=== PATIENT | female | born 1950 | race Caucasian/White ===

== ENCOUNTER 2021-10-12 08:15 | Outpatient (RCR) | payer MEDICARE, BC, SELFPAY | END 2022-09-28 11:08 | disposition home or self-care (01) | PROVIDERS: PCP Family Medicine; Visit Provider Surgery | DX: M25.561 Pain in right knee (principal); M17.11 Unilateral primary osteoarthritis, right knee; R26.9 Unspecified abnormalities of gait and mobility; Z51.89 Encounter for other specified aftercare | CPT/HCPCS: 97110; 97116; 97140; 97162; 97535; X5282 ==

== ENCOUNTER 2021-10-19 10:08 | Outpatient (CLI) | payer MEDICARE, BC, SELFPAY ==
--- NOTE | 2021-10-19 10:15 | CRLHL7_ITS ---
For Patients: As a result of the Century Cures Act, medical imaging exams and procedure reports are released immediately into your electronic medical record. You may view this report before your referring provider. If you have questions, please contact your health care provider. BILATERAL SCREENING MAMMOGRAM WITH COMPUTER-AIDED DETECTION AND TOMOSYNTHESIS TECHNIQUE: CC and MLO views were obtained. These mammographic images have been obtained using full-field digital technique. These mammographic images were interpreted with the benefit of computer-aided detection. Breast Tomosynthesis was used in this interpretation. COMPARISON FILM: 09/30/20, 09/30/19, 09/03/18. FINDINGS: There are scattered areas of fibroglandular density IMPRESSION: There is no radiographic evidence for malignancy. ASSESSMENT: BI-RADS Category 2: Benign RECOMMENDATION: Routine screening mammogram in 1 year. A lay language report of this examination will be provided to the patient. Jorje Manzano M.D. Diagnostic Radiologist [email or web address] Transcribed: 5:00 pm DW/Dictated by: Jorje Manzano MD @ 10/19/2021 12:02:00 PM (Electronically Signed)
== END 2021-10-19 10:09 | disposition home or self-care (01) ==
LOC: MAMMO 10:09
PROVIDERS: PCP Family Medicine; Visit Provider Family Medicine
DX: Z12.31 Encounter for screening mammogram for malignant neoplasm of breast (principal); R92.2 Inconclusive mammogram
CPT/HCPCS: 77063; 77067

== ENCOUNTER 2021-11-24 09:45 | Outpatient (RCR) | payer MEDICARE, BC, SELFPAY | END 2022-03-15 10:42 | disposition home or self-care (01) | PROVIDERS: PCP Family Medicine; Visit Provider Orthopaedic Surgery | DX: M17.11 Unilateral primary osteoarthritis, right knee (principal); Z51.89 Encounter for other specified aftercare | CPT/HCPCS: 97110; 97116; 97162 ==

== ENCOUNTER 2021-12-17 08:43 | Outpatient (CLI) | payer MEDICARE, BC, SELFPAY ==
[2021-12-17 13:28] LABS: SARS PCR* Negative SARS-CoV-2 (Negative)
== END 2021-12-17 08:44 | disposition home or self-care (01) ==
LOC: LONREF 08:43
PROVIDERS: PCP Family Medicine; Visit Provider Family Medicine
DX: Z20.822 Contact with and (suspected) exposure to COVID-19 (principal); Z01.818 Encounter for other preprocedural examination
CPT/HCPCS: 87635

== ENCOUNTER 2021-12-20 08:56 | Day surgery (SDC) | payer MEDICARE, BC, SELFPAY ==
--- NOTE | 2021-12-14 13:23 | PC.SOCIAL ---
Pre-Op Discharge Plan. Spoke with pt. after her pre-op teaching with the nurse. pt. is scheduled for a RTK next Monday. Pt. had questions about jail coverage but is hoping to discharge home with adult children checking on her and support. Answered pt.'s questions about SNF coverage.
[2021-12-20] VITALS (25 sets, daily range): BP systolic 92–147; BP diastolic 58–91; PULSE 55–103; RESP 12–20; TEMP 35.7–36.7; O2SAT 89–98; BMI 35.9
[2021-12-20] MEDS: SODIUM CHLORIDE 0.9 % (FLUSH) 10 ML SYRINGE IVF (10:10)
[2021-12-20] MEDS: LACTATED RINGERS 1000 ML 1,000 ML 100 ML IV ×2 (10:26→12:53)
[2021-12-20] MEDS: ACETAMINOPHEN 500 MG TABLET 1000 MG PO ×3 (10:27→21:12)
[2021-12-20] MEDS: CELECOXIB 200 MG CAPSULE PO ×2 (10:27→21:23)
[2021-12-20] MEDS: OXYCODONE (CR) 10 MG TAB.ER.12H PO (10:27)
[2021-12-20] MEDS: MIDAZOLAM HCL 1 MG/ML inj IVP (10:59)
[2021-12-20] MEDS: fentaNYL 100 MCG/2 ML inj IVP (10:59)
--- NOTE | 2021-12-20 11:04 | P.NB_ITS ---
Nerve Block Nerve Block Time Seen by Provider: 11:04 Date Seen: 12/20/21 Type of block requested by surgeon for post-operative analgesia: adductor canal Side: right Time out performed: Yes Verification of patient name: Yes Verification of date of : Yes Site marking: site marked Name of person performing procedure: Jona Continuous monitoring Was continuous monitoring of O2 sat, B/P, equipment monitor phototypesetting, recorded every 15 minutes?: Yes Procedure Checklist: sterile prep, needles and gloves Ultrasound guided. Images saved: Yes Medications given in 5ml increments after negative aspiration: Ropivicaine %: 0.5 mL: 20 Needle gauge: 20 Decadron (mg): 10 Precedex (mcg): 25 Patient tolerated procedure well: Yes Additional comments: Needle noted adjacent to nerve Block Charges Block Charge (with Pro Fee): Femoral Nerve Use of Ultrasound Machine for Block: Yes- US Guidance/pain block
--- NOTE | 2021-12-20 11:04 | P.NB_ITS ---
Nerve Block Nerve Block Time Seen by Provider: 11:05 Date Seen: 12/20/21 Type of block requested by surgeon for post-operative analgesia: geniculars Side: right Time out performed: Yes Verification of patient name: Yes Verification of date of : Yes Site marking: site marked Name of person performing procedure: Jona Continuous monitoring Was continuous monitoring of O2 sat, B/P, compliance monitor, recorded every 15 minutes?: Yes Procedure Checklist: sterile prep, needles and gloves Medications given in 5ml increments after negative aspiration: Ropivicaine %: 0.5 mL: 9 Needle gauge: 25 Patient tolerated procedure well: Yes Block Charges Block Charge (with Pro Fee): Genicular Nerve Block Use of Ultrasound Machine for Block: No
--- NOTE | 2021-12-20 11:06 | SUR.PREOP ---
TIME?OUT:?1058 PT/RN/MDA?VERIFICATION?OF?SURGICAL?SITE,?PROCEDURE,?AND?CONSENT OBTAINED?PRIOR?TO?INVASIVE?PROCEDURE. All in agreement.
[2021-12-20] MEDS: TRANEXAMIC ACID 100 MG/ML INJ 1000 MG IV (11:30)
[2021-12-20] MEDS: CEFAZOLIN 2 GM in 0.9 % SODIUM CHLORIDE Mini-bag 100 ML IVPB ×2 (12:17→19:46)
--- NOTE | 2021-12-20 13:01 | CRLHL7_ITS ---
For Patients: As a result of the Cures Act, medical imaging exams and procedure reports are released immediately into your electronic medical record. You may view this report before your referring provider. If you have questions, please contact your health care provider. INDICATION: Post operative total knee arthroplasty TECHNIQUE: Knee radiograph 2 views right COMPARISON: None FINDINGS: Bone: No acute fractures or aggressive bone lesions are identified. Joint: The patient is status post a total knee arthroplasty with patellar resurfacing. No significant knee effusion is seen. Soft tissue: Anterior skin, subcutaneous gas and joint gas are present from recent surgery. No radiopaque foreign bodies are seen. IMPRESSION: 1. There is an unremarkable postoperative appearance of the knee arthroplasty. Dictated by: Kermit Brar MD @ 12/20/2021 16:17:06 (Electronically Signed)
--- NOTE | 2021-12-20 13:49 | W.ANESCHARGE ---
Anesthesia Charges Start Date/Time Anesthesia Start Date: 12/20/21 Anesthesia Start Time: 11:17 Stop Date/Time Anesthesia Stop Date: 12/20/21 Anesthesia Stop Time: 13:32 Summary Emergency: No Extremes of Age: Over 70-CPT 85621
--- NOTE | 2021-12-20 14:15 | W.ANESCHARGE ---
Anesthesia Charges Start Date/Time Anesthesia Start Date: 12/20/21 Anesthesia Start Time: 11:17 Stop Date/Time Anesthesia Stop Date: 12/20/21 Anesthesia Stop Time: 13:32 Summary Emergency: No Extremes of Age: Over 70-CPT 99215
--- NOTE | 2021-12-20 14:54 | PM.ORPRC ---
Procedure Note Date of procedure: 12/20/21 Procedure: PREOPERATIVE DIAGNOSIS: 1. Right knee osteoarthritis, primary, severe POSTOPERATIVE DIAGNOSIS: 1. Right knee osteoarthritis, primary, severe PROCEDURE: 1. Right total knee arthroplasty SURGEON: Andrea Hinson MD. LEASE OUT WORKER: Karl AJ - Of note, a skilled assistant manager quality management was critical for this case to aid in patient positioning, tissue retraction, limb manipulation/positioning, and closure. ANESTHESIA: Spinal anesthetic IMPLANTS: DePuy J&J all cemented TKA - Attune PS femur size 6 narrow, size 5 tibia, 5 poly spacer, 35 mm patella TOURNIQUET: 90 min at 300 torr EBL: 50 ml COMPLICATIONS: None evident INDICATIONS: The patient is a pleasant 71-year-old female who has experienced severe right knee pain and difficulty bearing weight. Workup included x-rays which revealed severe osteoarthrosis in the knee. Given the deformity, the dysfunction, and the pain, as well as the failure of nonoperative management, recommendation was made for surgery. FINDINGS: Full-thickness chondral loss medial compartment. Significant chondromalacia remaining compartments. Degenerative medial meniscus pathology/tearing. Large effusion and large popliteal cyst encounter. DESCRIPTION OF PROCEDURE: Following a thorough discussion of risks, benefits, and alternatives consent was obtained and the right knee was marked. The patient was brought to the operating room and placed supine on the operating table. Induction of anesthesia was undertaken. 2 g IV Ancef and 1 g tranexamic acid was administered within 1 hr of incision preoperatively. Proper time-out was performed identifying proper patient, site, procedure. The operative extremity was prepped and draped in the appropriate sterile fashion using ChloraPrep after the patient was positioned supine with all bony prominences well padded. A longitudinal, anterior, midline skin incision was made starting approximately 3cm proximal to the superior pole of the patella and advanced distal to the tibial tubercle. A median parapatellar arthrotomy was created. A medial subperiosteal sleeve was created with knife, willard elevator and curved osteotome. The retropatellar fatpad was resected and the synovium in the suprapatellar pouch excised to visualize the anterior femoral cortex. Femoral preparation was performed via an intramedullary guide. Step drill allowed access into the femoral canal. The distal cutting guide was placed with this 6 ? of valgus and 11 mm cut on the distal femur. Femur was sized using a posterior referencing guide in 5 ? of external rotation. This found have a best fit with the sizing noted above. The 4 in 1 cutting block was then placed, and the distal femur shaped accordingly. The box cut was then created and the trial implant inserted to confirm appropriate fit. We turned our attention to the proximal tibia. Extramedullary guide was utilized for cutting with the goal of being 90 degree cut from the mechanical axis of the tibia in the varus/valgus plane utilizing tibial crest as the primary alignment. Initially a 3 mm resection was performed from the medial tibial plateau. Ultimately, balancing was achieved in both flexion and extension in both varus and valgus. The knee was able to achieve full extension as well comfortably. The patella was initially measured and found have a thickness of 21 mm. It was resected back to approximately 14 mm. It was sized to be a best fit with as noted above. This was drilled, trial placed. All trials were placed and found to have an excellent stability and balance. At this stage, trial implants were removed, the knee was thoroughly irrigated with normal saline, and the cement was mixed. After irrigation, the knee was thoroughly dried, and cement placed, with the real tibial and femoral implants placed along with the patella. Trial poly spacer was placed and confirmed to have excellent range of motion and full extension, and the real poly spacer opened and inserted. All extra cement was removed, and a 3 min Betadine soak performed. Finally, a final irrigation round with normal saline was performed. Closure performed with 0 Vicryl and #0 Stratafix for the quad tendon/retinaculum. 2-0 Vicryl for the subcutaneous and 4-0 Stratafix for subcuticular closure. Dressings were applied and the patient was awoken from anesthesia after the tourniquet deflated and transferred the PACU in stable condition. A skilled assistant manager quality management was critical for this case to aid in patient positioning, tissue retraction, bone exposure, limb manipulation/positioning, patient safety, and closure. PLAN: 1. Weight bear as tolerated operative extremity. 2. 23 hr perioperative antibiotics. 3. Ice. 4. PT/OT consults for ambulation assistance/mobility education. 5. Social work consult for discharge planning. 6. DVT prophylaxis with at SCDs, Gregorio Hose, and aspirin twice daily.
--- NOTE | 2021-12-20 20:59 | PC.NURSE ---
shift [id number] pt this shift returned from PACU around 1405. Pt drowsy, color WNL, stable on room air, and able to wiggle toes. Pt needed 2L nasal cannula soon after arrival for sats under 90%. Tolerated 1L NC after about 2 hours. pt c/o tingling bugs on feet massage was effective in reducing pain. Pt c/o of cramping throughout R leg, massage also seem to help. CMS intact, bandage CDI. tolerated ice chips, advanced to jello, and then soup. Dilaudid given for pain 09/19, see eMAR. Up to the toilet x2 using gait belt and walker. two person assist for first transfer, 1 person assist after. Family at bedside.
[2021-12-20] MEDS: ASPIRIN 81 MG TABLET EC PO (21:13)
[2021-12-20] MEDS: GABAPENTIN 300 MG CAPSULE PO (21:24)
[2021-12-20] MEDS: SENNOSIDES 1 TAB TABLET 2 TAB PO (21:26)
[2021-12-20] MEDS: ROSUVASTATIN CALCIUM 10 MG TABLET 20 MG PO (21:29)
--- NOTE | 2021-12-20 22:17 | PM.IMCN1 ---
Date of Consult Patient: [facility] Patient Consult date: 12/20/21 Requesting Physician: Orthopedics Primary Care Provider: Bryant Jc MD Consult Narrative Reason for consult: Postoperative management of medical problems Narrative: Leelee Snow is a 71 year old woman with end-stage right knee arthrosis who presents for elective right total knee arthroplasty. This is undertaken successfully without any complications. Review of Systems Status of ROS: Reports: 10 or more systems reviewed and unremarkable except as noted in History and below Narrative: Denies angina, anginal equivalent, syncope, near syncope, nausea, vomiting, palpitations, diaphoresis, dyspnea at rest, paroxysmal nocturnal dyspnea, orthopnea, or claudication. States bowel and bladder function are satisfactory. Denies focal motor neurologic deficits. No recent trauma or injury. No blood loss of any sort. Lives alone. Has family and friends who live nearby and are very supportive. Designates her 2 daughters as her salgado of assistant city attorney for health should that be required. Adamantly declines any resuscitation of any kind in the event of cardiopulmonary demise. Does use her CPAP routinely. GI: Denies: diarrhea PFSH PFSH Medical History ASCVD (arteriosclerotic cardiovascular disease) Asthma COPD (chronic obstructive pulmonary disease) Cyst of Bartholin's gland Diverticulosis DJD (degenerative joint disease) GERD (gastroesophageal reflux disease) HTN (hypertension) Hyperlipidemia Invasive lobular carcinoma of right breast in female (~11/2020) Obesity (BMI 30-39.9) Obstructive sleep apnea Osteoarthritis of right knee Osteopenia Pulmonary hypertension Tobacco use Surgical History History of parotid gland excision History of removal of ovarian cyst S/P ger S/P lumpectomy of breast (~11/2020) S/P radiation therapy Status post arthroscopy of left knee Family History Father Bladder cancer Mother CHF (congestive heart failure) Social History Smoking Status: Former smoker What tobacco products do you use: cigarettes Smoking quit date/years: <= 15 years ago Do you use any of these nicotine containing products: None Second hand tobacco smoke exposure: No How often do you have a drink containing alcohol: monthly or less Alcohol type: wine How many standard drinks containing alcohol do you have on a typical day: 1 or 2 How often do you have six or more drinks on one occasion: Never AUDIT-C Alcohol total score: 1 Non-prescribed substance use: denies use and marijuana (any form) Non-prescribed substance use details: CBD cream but has not used for a couple weeks Caffeine: Yes (1-2 cups/day) Are you using contraception or practicing any form of control: No Meds Home Medications and Allergies Home Medications Medication Instructions Recorded Confirmed Type aspirin 81 mg tablet,delayed 81 mg PO QDAY 11/12/21 12/20/21 History release celecoxib 200 mg capsule 200 mg PO QDAY 11/12/21 12/20/21 History fluticasone propionate 220 1 puff inhalation BID 11/12/21 12/20/21 History mcg/actuation HFA aerosol inhaler (Flovent HFA) furosemide 20 mg tablet 20 mg PO QAM 11/12/21 12/20/21 History gabapentin 300 mg capsule 300 mg PO TID 11/12/21 12/20/21 History losartan 100 mg tablet 100 mg PO QDAY 11/12/21 12/20/21 History magnesium oxide 400 mg (241.3 mg 400 mg PO QDAY 11/12/21 12/20/21 History magnesium) tablet omeprazole 40 mg capsule,delayed 40 mg PO QDAY 11/12/21 12/20/21 History release rosuvastatin 20 mg tablet 20 mg PO QDAY 11/12/21 12/20/21 History Allergies Allergy/AdvReac Type Severity Reaction Status Date / Time contact metal agent Allergy Mild Verified 12/17/21 08:40 codeine Allergy Rash Verified 12/17/21 08:40 Penicillins Allergy Rash Verified 12/17/21 08:40 Exam Narrative: Exam Narrative: Appears comfortable and in no acute distress. Alert, oriented to self, place, time, situation. Friendly, articulate, cooperative. Mood and affect are congruent. Vision and hearing are grossly normal. Tight oral aperture. Dentition in fair repair. Full neck. Midline trachea. Normal thyroid. Negative lymphadenopathy. Lungs are clear to auscultation without wheezing, rhonchi, or rales. Chest wall excursions are full. No CVA tenderness. Heart tones with regular rhythm, normal S1-S2, without murmur, gallop, or rub. Abdomen is obese with active bowel sounds, soft, nontender. Extremities without edema. No focal motor neurologic abnormalities. Skin is warm, dry, intact. Const: Vital Signs, click to edit/add: Vital Signs - 24 hr 12/20/21 09:58 12/20/21 11:07 12/20/21 11:11 Temperature 98.0 F Pulse Rate 68 60 58 L Pulse Rate [Right Pulse Oximeter] Respiratory Rate 16 16 14 Blood Pressure 147/71 H 138/64 94/58 L Blood Pressure [Le ft Arm] Pulse Oximetry 94 94 92 Oxygen Delivery Me thod Room Air Nasal Cannula Nasal Cannula Oxygen Flow Rate 2 2 12/20/21 11:08 12/20/21 13:30 12/20/21 13:35 Temperature 97.2 F L Pulse Rate 57 L 58 L 59 L Pulse Rate [Right Pulse Oximeter] Respiratory Rate 14 16 16 Blood Pressure 123/72 92/61 96/66 Blood Pressure [Le ft Arm] Pulse Oximetry 95 93 94 Oxygen Delivery Me thod Nasal Cannula Room Air Room Air Oxygen Flow Rate 2 12/20/21 13:40 12/20/21 13:45 12/20/21 13:50 Temperature 97.4 F L Pulse Rate 56 L 58 L 56 L Pulse Rate [Right Pulse Oximeter] Respiratory Rate 16 16 16 Blood Pressure 107/67 107/68 106/66 Blood Pressure [Le ft Arm] Pulse Oximetry 90 98 98 Oxygen Delivery Me thod Room Air Nasal Cannula Nasal Cannula Oxygen Flow Rate 2 2 12/20/21 13:55 12/20/21 14:00 12/20/21 14:08 Temperature 96.2 F L Pulse Rate 58 L 56 L Pulse Rate [Right Pulse Oximeter] 57 L Respiratory Rate 16 16 14 Blood Pressure 104/67 104/68 Blood Pressure [Le ft Arm] 101/68 Pulse Oximetry 97 98 93 Oxygen Delivery Me thod Nasal Cannula Nasal Cannula Room Air Oxygen Flow Rate 2 2 12/20/21 14:15 12/20/21 14:30 12/20/21 14:45 Temperature Pulse Rate Pulse Rate [Right Pulse Oximeter] 55 L 58 L 57 L Respiratory Rate 12 12 15 Blood Pressure Blood Pressure [Le ft Arm] 115/71 112/69 106/88 Pulse Oximetry 89 93 98 Oxygen Delivery Me thod Room Air Room Air Nasal Cannula Oxygen Flow Rate 2 12/20/21 15:00 12/20/21 15:30 12/20/21 16:00 Temperature 97.7 F Pulse Rate Pulse Rate [Right Pulse Oximeter] 68 84 Respiratory Rate 15 16 Blood Pressure Blood Pressure [Le ft Arm] 127/78 124/81 Pulse Oximetry 95 94 94 Oxygen Delivery Me thod Nasal Cannula Nasal Cannula Nasal Cannula Oxygen Flow Rate 2 2 1 12/20/21 17:00 12/20/21 18:00 Temperature Pulse Rate Pulse Rate [Right Pulse Oximeter] 76 103 H Respiratory Rate 18 18 Blood Pressure Blood Pressure [Le ft Arm] 132/84 125/76 Pulse Oximetry 93 Oxygen Delivery Me thod Nasal Cannula Nasal Cannula Oxygen Flow Rate 1 1 Documenting provider has reviewed patient's vital signs: yes Assessment and Plan Assessment and plan (1) Osteoarthritis of right knee: Problem comment: Severe Status: Acute (2) Status post right knee replacement: Status: Acute (3) Obesity (BMI 30-39.9): Status: Acute (4) Obstructive sleep apnea: Problem comment: Uses her CPAP Status: Acute (5) COPD (chronic obstructive pulmonary disease): Status: Acute (6) Asthma: Status: Acute (7) ASCVD (arteriosclerotic cardiovascular disease): Status: Acute (8) Hyperlipidemia: Status: Acute (9) HTN (hypertension): Status: Acute Plan 1. Reviewed impression with patient. Answered her questions. 2. Will resume her usual medications at this time. 3. Agree with perioperative antibiotic prophylaxis. 4. Agree with venous thromboembolism prophylaxis measures. 5. Continue with her CPAP use. 6. Patient agreeable to above stated plans and recommendations.
[2021-12-20] MEDS: OXYCODONE 5 MG TABLET PO (23:18)
[2021-12-21] MEDS: ACETAMINOPHEN 500 MG TABLET 1000 MG PO (01:55)
[2021-12-21] MEDS: CEFAZOLIN 2 GM in 0.9 % SODIUM CHLORIDE Mini-bag 100 ML IVPB ×2 (01:56→09:53)
[2021-12-21 03:00] VITALS: BP 105/70; PULSE 78; RESP 22; TEMP 36.3; O2SAT 92
[2021-12-21] MEDS: OXYCODONE 5 MG TABLET PO ×2 (03:26→06:36)
--- NOTE | 2021-12-21 05:20 | PC.NURSE ---
SHIFT NOTE : Pt A&O. Afebrile. Pt originally satting in the low 90's on CPAP, but when pt fell asleep O2 sats dropped to 82%, 2L O2 bled into CPAP with oxygen saturations in the mid 90's. Pt up 1 assist and a walker. Surgical dressing C/D/I, CMS intact, cryocuff on continuously. PRN Oxycodone and scheduled Tylenol given for pain with pt reporting relief. Pt denies SOB, CP, and N/V.
[2021-12-21] MEDS: OMEPRAZOLE 20 MG CAPSULE DR 40 MG PO (06:36)
[2021-12-21 07:10] LABS: Potassium* 4.3 mmol/L (3.6-5.1); Sodium* 138 mmol/L (135-149)
[2021-12-21 07:13] LABS: Blood Urea Nitrogen* 18 mg/dL (7-30); Creatinine* 0.7 mg/dL (0.5-1.5); Est. Creatinine Clearance* 46.43; Estimated Glomerular Filt Rate 92 ml/min
[2021-12-21 07:14] LABS: Hematocrit 37.9 % (33.0-51.0); Hemoglobin* 12.3 gm/dL (12.0-16.0); Immature Granulocytes Abs Auto 0.02 K/uL (0.00-0.30); Lymphocytes Percent Auto 14.1 % (20-44); Mean Corpuscular HGB Conc 33 gm/dL (32-36); Mean Corpuscular Hemoglobin 30 pg (26-34); Mean Corpuscular Volume 92 fL (80-100); Monocytes Percent Auto 7.9 % (0.0-11.0); Neutrophils Percent Auto 77.8 % (42.0-72.0); Platelet Count* 217 K/uL (140-440); Red Blood Count 4.14 m/uL (4.00-5.20); White Blood Count* 11.45 K/uL (4.50-11.00)
[2021-12-21 07:23] LABS: Slide Review Reflex No
[2021-12-21 07:45] VITALS: BP 114/80; PULSE 72; RESP 20; TEMP 36.6; O2SAT 94
--- NOTE | 2021-12-21 09:27 | PC.SOCIAL ---
Addendum entered by SCOT Bear 12/21/21 09:40: Reviewed and approved note. Salena Williamson Original Note: Social work completed discharge check-in with patient. Confirmed that pt. has a plan for acquiring a walker to use at home, and pt. states that home is accessible for walker use (only one entry step, single level home). Pt. has family members in [place] to support her if needed. Pt. expresses no concerns about going home at this time.
[2021-12-21] MEDS: MAGNESIUM OXIDE 400 MG TABLET PO (09:28)
[2021-12-21] MEDS: SENNOSIDES 1 TAB TABLET 2 TAB PO (09:28)
[2021-12-21] MEDS: ASPIRIN 81 MG TABLET EC PO (09:28)
[2021-12-21] MEDS: LOSARTAN POTASSIUM 50 MG TABLET 100 MG PO (09:28)
[2021-12-21] MEDS: GABAPENTIN 300 MG CAPSULE 600 MG PO (09:28)
[2021-12-21] MEDS: FUROSEMIDE 20 MG TABLET PO (09:28)
[2021-12-21] MEDS: CELECOXIB 200 MG CAPSULE PO (09:29)
--- NOTE | 2021-12-21 11:31 | PM.ORPN ---
Subjective Subjective Date Seen: 12/21/21 Principal diagnosis: Status postop day 1 right total knee arthroplasty Interval history: Patient reports doing well. No acute events over night. Did not sleep well. Pain managed with scheduled /PRN medications and ice. DVT prophylaxis 81 mg aspirin by mouth twice daily, bilateral knee high Gregorio stockings, and SCDs. Denies fevers, chills, aches, N/V, CP, SOB/CORONA, tachycardia, or lightheadedness. Ortho Exam Narrative Exam Narrative: -Patient appears comfortable; no apparent acute distress -Alert and oriented times 3 -Operative knee mildly swollen; soft tissues supple; no ecchymosis; no erythematous streaking Warmth appropriate -Surgical dressing clean, dry, intact; no drainage -Bilateral calfs soft; no significant swelling, edema, tenderness, erythema, discoloration, warmth, or palpable cords -2+ DP/PT pulses, intact dermatomes and myotomes distally (5/5 strength) Const Vital Signs, click to edit/add: Vital Signs - 24 hr 12/20/21 13:30 12/20/21 13:35 12/20/21 13:40 Temperature 97.2 F L Pulse Rate 58 L 59 L 56 L Pulse Rate [Right Dorsalis Pedis] Pulse Rate [Right Pulse Oximeter] Respiratory Rate 16 16 16 Blood Pressure 92/61 96/66 107/67 Blood Pressure [Left Arm] Pulse Oximetry 93 94 90 Oxygen Delivery Method Room Air Room Air Room Air Oxygen Flow Rate 12/20/21 13:45 12/20/21 13:50 12/20/21 13:55 Temperature 97.4 F L Pulse Rate 58 L 56 L 58 L Pulse Rate [Right Dorsalis Pedis] Pulse Rate [Right Pulse Oximeter] Respiratory Rate 16 16 16 Blood Pressure 107/68 106/66 104/67 Blood Pressure [Left Arm] Pulse Oximetry 98 98 97 Oxygen Delivery Method Nasal Cannula Nasal Cannula Nasal Cannula Oxygen Flow Rate 2 2 2 12/20/21 14:00 12/20/21 14:08 12/20/21 14:15 Temperature 96.2 F L Pulse Rate 56 L Pulse Rate [Right Dorsalis Pedis] Pulse Rate [Right Pulse Oximeter] 57 L 55 L Respiratory Rate 16 14 12 Blood Pressure 104/68 Blood Pressure [Left Arm] 101/68 115/71 Pulse Oximetry 98 93 89 Oxygen Delivery Method Nasal Cannula Room Air Room Air Oxygen Flow Rate 2 12/20/21 14:30 12/20/21 14:45 12/20/21 15:00 Temperature Pulse Rate Pulse Rate [Right Dorsalis Pedis] Pulse Rate [Right Pulse Oximeter] 58 L 57 L Respiratory Rate 12 15 Blood Pressure Blood Pressure [Left Arm] 112/69 106/88 Pulse Oximetry 93 98 95 Oxygen Delivery Method Room Air Nasal Cannula Nasal Cannula Oxygen Flow Rate 2 2 12/20/21 15:30 12/20/21 16:00 12/20/21 17:00 Temperature 97.7 F Pulse Rate Pulse Rate [Right Dorsalis Pedis] Pulse Rate [Right Pulse Oximeter] 68 84 76 Respiratory Rate 15 16 18 Blood Pressure Blood Pressure [Left Arm] 127/78 124/81 132/84 Pulse Oximetry 94 94 93 Oxygen Delivery Method Nasal Cannula Nasal Cannula Nasal Cannula Oxygen Flow Rate 2 1 1 12/20/21 18:00 12/20/21 19:00 12/20/21 20:00 Temperature 97.6 F Pulse Rate Pulse Rate [Right Dorsalis Pedis] Pulse Rate [Right Pulse Oximeter] 103 H 89 92 Respiratory Rate 18 20 18 Blood Pressure Blood Pressure [Left Arm] 125/76 118/83 122/91 H Pulse Oximetry 94 Oxygen Delivery Method Nasal Cannula Nasal Cannula Nasal Cannula Oxygen Flow Rate 1 1.5 1.5 12/20/21 21:00 12/20/21 23:00 12/21/21 03:00 Temperature 97.2 F L 97.5 F L 97.3 F L Pulse Rate Pulse Rate [Right Dorsalis Pedis] Pulse Rate [Right Pulse Oximeter] 89 88 78 Respiratory Rate 20 20 22 Blood Pressure Blood Pressure [Left Arm] 113/75 121/73 105/70 Pulse Oximetry 92 92 Oxygen Delivery Method CPAP CPAP CPAP Oxygen Flow Rate 12/20/21 23:15 12/21/21 07:45 Temperature 98 F Pulse Rate Pulse Rate [Right Dorsalis Pedis] 72 Pulse Rate [Right Pulse Oximeter] 72 Respiratory Rate 20 Blood Pressure Blood Pressure [Left Arm] 114/80 Pulse Oximetry 92 94 Oxygen Delivery Method CPAP Nasal Cannula Oxygen Flow Rate 2 2 Assessment and Plan Assessment and plan (1) Osteoarthritis of right knee: Problem details: Severe Status: Acute (2) Status post right knee replacement: Problem details: POD 1 right total knee arthroplasty Status: Acute (3) Obesity (BMI 30-39.9): Status: Acute (4) Obstructive sleep apnea: Problem details: Uses her CPAP Status: Acute (5) COPD (chronic obstructive pulmonary disease): Status: Acute (6) Asthma: Status: Acute (7) ASCVD (arteriosclerotic cardiovascular disease): Status: Acute (8) Hyperlipidemia: Status: Acute (9) HTN (hypertension): Status: Acute Plan - Complete 23 hour perioperative antibiotics. - PT/OT consult for education and assistance. - Social work consult for discharge planning - Prescribed analgesics as needed - DVT prophylaxis: 81 mg aspirin by mouth twice daily, bilateral knee high Gregorio Hose stockings and SCDs - Will right Rx for walker, likely [facility] - Anticipation is for discharge to home with family, 2 adult children today 12/21/2021 if the patient remains medically stable, pain is controlled, and they are safe with mobilization.
--- NOTE | 2021-12-21 11:36 | P.DS_ITS ---
DS: Providers Provider Date Seen: 12/21/21 Date of admission: med/surg recovery 12/20/21 Primary care physician: Bryant Jc MD Consults: 12/20/21 14:08 Consult to Occupational Therapy [CONS] Routine Comment: Reason(s) for OT Consult:: ADLs Prior to Discharge Any Restrictions?:: See Comment Comment: See nursing activity order for any restrictions. Consult to Physical Therapy [CONS] Routine Comment: Ambulate in the argueta today. Reason(s) for PT Consult:: TKA TX Protocol POD#0 Any Restrictions?:: See Comment Comment: See nursing activity order for any restrictions. Consult to Physician [CONS] Routine Comment: Consulting Provider: Hospitalists Has provider been notified: No Consult to Senior Firmware Engineer [CONS] Routine Comment: Reason for Consult:: Discharge Planning Needs 12/20/21 22:28 Consult to Respiratory Therapy [CONS] Routine Comment: Reason(s) for RT Consult:: Consult Comment: Teach administration of MDI with appropriate spacer or chamber Attending Physician on discharge: Andrea Hinson MD Date of Discharge: 12/21/21 DS: Diagnosis Discharge Diagnosis (1) Osteoarthritis of right knee: Status: Acute Problem details: Severe (2) Status post right knee replacement: Status: Acute Problem details: 12/20/2021 DS: Summary Hospital Course Hospital Course: The patient has a history of right knee osteoarthritis, primary, severe. After appropriate preoperative evaluation, the patient underwent right total knee arthroplasty. Postoperatively given anticoagulation for deep vein thrombosis prophylaxis. They progressed to PT/OT and were felt ready and prepared for discharged to home with appropriate pain medication and anticoagulation medications. Status at Discharge Functional status at discharge: uses cane/walker Overall status at discharge: patient is progressing back to baseline Time Spent with Patient Time attestation: Total time spent providing and/or coordinating discharge services: Time spent: Less than 30 minutes Exam Const: Vital Signs, click to edit/add: Vital Signs - 24 hr 12/20/21 13:30 12/20/21 13:35 12/20/21 13:40 Temperature 97.2 F L Pulse Rate 58 L 59 L 56 L Pulse Rate [Right Dorsalis Pedis] Pulse Rate [Right Pulse Oximeter] Respiratory Rate 16 16 16 Blood Pressure 92/61 96/66 107/67 Blood Pressure [Le ft Arm] Pulse Oximetry 93 94 90 Oxygen Delivery Me thod Room Air Room Air Room Air Oxygen Flow Rate 12/20/21 13:45 12/20/21 13:50 12/20/21 13:55 Temperature 97.4 F L Pulse Rate 58 L 56 L 58 L Pulse Rate [Right Dorsalis Pedis] Pulse Rate [Right Pulse Oximeter] Respiratory Rate 16 16 16 Blood Pressure 107/68 106/66 104/67 Blood Pressure [Le ft Arm] Pulse Oximetry 98 98 97 Oxygen Delivery Me thod Nasal Cannula Nasal Cannula Nasal Cannula Oxygen Flow Rate 2 2 2 12/20/21 14:00 12/20/21 14:08 12/20/21 14:15 Temperature 96.2 F L Pulse Rate 56 L Pulse Rate [Right Dorsalis Pedis] Pulse Rate [Right Pulse Oximeter] 57 L 55 L Respiratory Rate 16 14 12 Blood Pressure 104/68 Blood Pressure [Le ft Arm] 101/68 115/71 Pulse Oximetry 98 93 89 Oxygen Delivery Me thod Nasal Cannula Room Air Room Air Oxygen Flow Rate 2 12/20/21 14:30 12/20/21 14:45 12/20/21 15:00 Temperature Pulse Rate Pulse Rate [Right Dorsalis Pedis] Pulse Rate [Right Pulse Oximeter] 58 L 57 L Respiratory Rate 12 15 Blood Pressure Blood Pressure [Le ft Arm] 112/69 106/88 Pulse Oximetry 93 98 95 Oxygen Delivery Me thod Room Air Nasal Cannula Nasal Cannula Oxygen Flow Rate 2 2 12/20/21 15:30 12/20/21 16:00 12/20/21 17:00 Temperature 97.7 F Pulse Rate Pulse Rate [Right Dorsalis Pedis] Pulse Rate [Right Pulse Oximeter] 68 84 76 Respiratory Rate 15 16 18 Blood Pressure Blood Pressure [Le ft Arm] 127/78 124/81 132/84 Pulse Oximetry 94 94 93 Oxygen Delivery Me thod Nasal Cannula Nasal Cannula Nasal Cannula Oxygen Flow Rate 2 1 1 12/20/21 18:00 12/20/21 19:00 12/20/21 20:00 Temperature 97.6 F Pulse Rate Pulse Rate [Right Dorsalis Pedis] Pulse Rate [Right Pulse Oximeter] 103 H 89 92 Respiratory Rate 18 20 18 Blood Pressure Blood Pressure [Le ft Arm] 125/76 118/83 122/91 H Pulse Oximetry 94 Oxygen Delivery Me thod Nasal Cannula Nasal Cannula Nasal Cannula Oxygen Flow Rate 1 1.5 1.5 12/20/21 21:00 12/20/21 23:00 12/21/21 03:00 Temperature 97.2 F L 97.5 F L 97.3 F L Pulse Rate Pulse Rate [Right Dorsalis Pedis] Pulse Rate [Right Pulse Oximeter] 89 88 78 Respiratory Rate 20 20 22 Blood Pressure Blood Pressure [Le ft Arm] 113/75 121/73 105/70 Pulse Oximetry 92 92 Oxygen Delivery Me thod CPAP CPAP CPAP Oxygen Flow Rate 12/20/21 23:15 12/21/21 07:45 Temperature 98 F Pulse Rate Pulse Rate [Right Dorsalis Pedis] 72 Pulse Rate [Right Pulse Oximeter] 72 Respiratory Rate 20 Blood Pressure Blood Pressure [Le ft Arm] 114/80 Pulse Oximetry 92 94 Oxygen Delivery Me thod CPAP Nasal Cannula Oxygen Flow Rate 2 2 DS: Data Data Completed and Pending Labs on day of discharge: Labs from last 24 hours 12/21/21 12/21/21 06:05 06:05 WBC 11.45 H RBC 4.14 Hgb 12.3 Hct 37.9 MCV 92 MCH 30 MCHC 33 RDW Coeff of Radhika 14.0 Plt Count 217 Neut % (Auto) 77.8 H Lymph % (Auto) 14.1 L [place] % (Auto) 7.9 Eos % (Auto) 0.0 Baso % (Auto) 0.0 Neut # (Auto) 8.90 H Lymph # (Auto) 1.60 [place] # (Auto) 0.90 Eos # (Auto) 0.00 Baso # (Auto) 0.00 Abs Immat Gran (auto) 0.02 Sodium 138 Potassium 4.3 BUN 18 Creatinine 0.7 Estimated Creat Clear 46.43 Estimated GFR 92 Discharge Plan Discharge Disposition: Home, Self-Care Discharging Surgeon: Andrea Hinson Follow-Up Appointment: 1 week PO visit with EMELI Prescriptions: New aspirin 81 mg tablet,delayed release (DR/EC) 81 mg PO BID Qty: 60 0RF Rx Instructions: Medication to help prevent blood clots postoperatively; take TWICE daily. acetaminophen 500 mg capsule 500 - 1,000 mg PO Q6H MDD 4000mg PRNQty: 100 0RF oxycodone 5 mg tablet 2.5 - 5 mg PO Q4-6H MDD 6 PRN (Reason: pain) Qty: 42 0RF Rx Instructions: Take as needed for postop pain: 2.5mg mild pain, 5mg moderate-severe pain; wean as tolerated. sennosides-docusate sodium [Senna-S] 8.6-50 mg tablet 1 - 4 tab-cap PO BID PRN (Reason: constipation) Qty: 60 0RF Rx Instructions: Hold medication if experiencing loose stools. Continued celecoxib 200 mg capsule 200 mg PO QDAY fluticasone propionate [Flovent HFA] 220 mcg/actuation HFA aerosol inhaler 1 puff inhalation BID furosemide 20 mg tablet 20 mg PO QAM gabapentin 300 mg capsule 300 mg PO TID Rx Instructions: 600MG IN THE AM, 300MG MID-DAY, AND 900MG AT HS losartan 100 mg tablet 100 mg PO QDAY magnesium oxide 400 mg (241.3 mg magnesium) tablet 400 mg PO QDAY omeprazole 40 mg capsule,delayed release(DR/EC) 40 mg PO QDAY rosuvastatin 20 mg tablet 20 mg PO QDAY anastrozole [Arimidex] 1 mg tablet 1 mg PO QDAY Qty: 90 3RF Spiriva with HandiHaler 18 mcg capsule, w/inhalation device 1 cap inhalation QDAY Qty: 90 3RF Rx Instructions: puncture 1 cap using device; one dose = 2 inhalations Combivent Respimat 20-100 mcg/actuation mist 1 puff inhalation Q6H Qty: 4 3RF Held aspirin 81 mg tablet,delayed release (DR/EC) 81 mg PO QDAY Hold Instructions: Resume on 01/20/22. Resume upon completion of the aspirin 81 mg twice daily dosing recommended per Orthopedic surgery. Activity Level: Activity as Tolerated, Weight Bearing as Tolerated, Use Cane and Use Walker Discharge Diet: Heart Healthy (2 gm sodium, low fat) Patient Instructions: Acetaminophen (By mouth), Aspirin (By mouth), Oxycodone, Rapid Release (By mouth), Senna (By mouth), Surgical Site Infections (DC), Knee Replacement (DC) Additional Instructions: Wound: ?Do not remove original dressing; we will remove this at first postop visit in 1 week. Only remove dressing if integrity is in question. ?No immersing wound in water; showering okay; light scrub with your hand and body soap, rinse, dab dry ?Sutures are under the skin, will dissolve; allow surgical glue to come off naturally; do not scrub the wound or apply ointments/lotions ?Call our office with any redness that streaks, excessive drainage from the wound, or wound gapping. Ice/Elevate: ?Ice as needed for swelling and discomfort (cryocuff or ice pack); elevate frequently above the heart SUMMER socks: ?Wear for 1 month, remove for 1 hour 3 times per day ?These are frustrating to take on/off, but are important for blood clot prevention for 1 month after surgery Blood Clot Prevention (DVT): ?Medication: 81 mg aspirin by mouth twice daily (1 month) Driving: ?Do not drive while taking narcotic pain medication ?Anticipate 4-6 weeks no driving if operative leg is driving leg Dental: ?No elective dental work for 6 months post-op. If there is an urgent/emergent dental need, contact our office for an antibiotic prescription. Smoking/Alcohol: ?Do not smoke; do no drink alcohol especially when taking postoperative oral narcotic medication Seek Care from you Primary Care Provider if you experience the following issues in the postoperative phase and beyond: ?Bacterial infections such as: pneumonia, bacterial skin infection (cellulitis), UTI, high fever, chills unrelated to the operative body part - call your primary care physician urgently for treatment in hopes to protect your health and the metal implant. Referrals: ?PT, OT per patient preference - evaluate treat total knee arthroplasty protocol (gait training, ROM, ADLs) Follow up: ?Ortho surgeon follow-up in 6 weeks; repeat radiographs three views operative knee ?EMELI visit in 1 week *If there are any acute concerns regarding your surgery, please call our orthopedic clinic ([phone]) Forms: Work/Release Restrictions Follow-up: Bryant Jc MD [Primary Care Provider] - Robert Matamoros PA-C [Physician Jailer/Training Officer] - 12/28/21 1:00 pm (At the [facility]. [phone]) Discharge Orders: Discharge Order (Routine); Ordered 12/20/21 Ordered By: Rick Devlin
--- NOTE | 2021-12-21 13:06 | PC.NURSE ---
Please see eMar for medications given on day shift. Eval by PT, OT, Robert crowder PA and myself. Pt verbalized understanding of d/c diagnosis, home meds, pain management plan, safety precautions, f/up appt and sx to report urgently to physician. Discharged via w/c to own home with dtr Samantha siddiqui transportation@ 11:55.
== END 2021-12-21 12:55 | disposition home or self-care (01) ==
LOC: OR 08:56 → MEDSURG 09:00
PROVIDERS: PCP Family Medicine; Visit Provider Orthopaedic Surgery Sports Medicine
PROC: (CPT 27447; principal; 2021-12-20 11:00)
DX: M17.11 Unilateral primary osteoarthritis, right knee (principal); J45.909 Unspecified asthma, uncomplicated; J44.9 Chronic obstructive pulmonary disease, unspecified; G47.33 Obstructive sleep apnea (adult) (pediatric); E66.9 Obesity, unspecified; E78.5 Hyperlipidemia, unspecified; I25.10 Atherosclerotic heart disease of native coronary artery without angina pectoris; I10 Essential (primary) hypertension
CPT/HCPCS: 27447; 01402; 36415; 64447; 64454; 73560; 76942; 82565; 84132; 84295; 84520; 85025; 97110; 97161; 97165; 97535; 99100; A9270; C1776; J0690; J1100; J2250; J2405; J2704; J2795; J3010; J7120

== ENCOUNTER 2022-02-15 10:15 | Outpatient (RCR) | payer MEDICARE, BC, SELFPAY | END 2022-05-16 23:59 | disposition home or self-care (01) | LOC: CCIC 10:15 | PROVIDERS: PCP Family Medicine; Visit Provider Internal Medicine Hematology & Oncology | DX: C50.911 Malignant neoplasm of unspecified site of right female breast (principal); Z17.0 Estrogen receptor positive status [ER+]; Z79.811 Long term (current) use of aromatase inhibitors; J44.9 Chronic obstructive pulmonary disease, unspecified; M85.80 Other specified disorders of bone density and structure, unspecified site | CPT/HCPCS: 99212; 99213; 99214 ==

== ENCOUNTER 2022-02-16 11:15 | Outpatient (RCR) | payer MEDICARE, BC, SELFPAY ==
--- NOTE | 2021-12-16 15:48 | PT.OPEX ---
PT [place] Outpatient Eval PT [facility] Outpatient Eval Start: 12/16/21 14:44 Freq: Status: Active Protocol: Document 12/16/21 15:05 JUAN MANUEL (Rec: 12/16/21 15:43 NMK [id number]) E-signed By Avila Chavez DPT Physical Therapy Outpatient Evaluation Insurance Information Recert Due Date 03/18/21 Insurance Name Medicare B,Blue Cross/Blue Shield Medical Diagnosis Unilateral primary osteoarthritis, right knee Treating Diagnosis R knee pain; aftercare following joint replacement; decreased knee ROM Referring Andrea Reyes MD Subjective Subjective 71 y.o. female presents for pre-op visit prior to total knee arthroplasty on 2021. She has been dealing with knee pain for a number of years and states this surgery has been a long time coming and she is looking forward to feeling better. She currently has pain with all activities including prolonged sitting, walking, stairs, sit<>stand transfers, and she gets significant knee pain at night as well. She has extensive medical history as well, briefly highlighted below. She reports she lives alone. She currently functions well independently without the use of gait aid. She lives very close to her daughter and son who will check in routinely with her after surgery. She is looking forward to having less pain after her recovery. Her main goals are to be able to ambulate and perform daily tasks without pain. 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 female presents for pre-op visit prior to total knee arthroplasty on 2021. Her current impairments include R knee pain, decreased R knee ROM, R knee effusion, and decreased R knee strength. These impairments cause significant pain with daily activities including walking, standing, stairs, and sitting related activities. She also has night pain and has significant trouble sleeping. Overall, she seems slightly unprepared at this time as she does not plan to have a caregiver present after surgery, and pt does live alone. Extensive education provided this session on importance of having a caregiver around 24/7 for the first few days following surgery, with pt expressing understanding. She does have a high PLOF at this time, and does not have to perform stairs to get home. She will greatly benefit from skilled PT services in order to achieve optimal outcome before and after surgery, Primary Functional Limitations Walking, standing, sitting, stairs, and squatting Plan of Care Rehabilitation Potential Good Physical Therapy Goals By end of session today, patient will... GOALS MET 12/16 1. Demonstrate appropriate gait pattern with FWW to utilize post surgery for optimal safety when ambulating 2. Demonstrate ability to negotiate stairs using appropriate stair pattern post surgery for optimal safety when at home and in community 3. Verbalize understanding of most appropriate home set up including needed equipment for optimal safety and recovery post surgery 4. Be independent in HEP program to show ability to perform appropriate exercises post surgery Coordination/Communication With Referral Source Treatment Plan/Direct Interventions Gait Training,Joint Mobilization,Manual Therapy, Neuromuscular Re-ed,Self-Care/ Home Management,Therapeutic Activities,Therapeutic Exercises Frequency/Duration 1-2 per week for 12-16 weeks Patient Will Be Discharged From Therapy Completion of LTG(s),Skills Plateau,Independent w/HEP, Independently Progressing Evaluation Billing Untimed Code Treatment Minutes 15 Complexity Moderate Certification Information Initial Certification Date 12/16/21 Ending Certification Date 03/18/22 Provider Signature Shows Agreement With POC & Medical Necessity Physician Signature & Date Requested Please Sign/Date Here Physician Comment/Change : Physician NPI Number #
== END 2022-02-16 12:16 | disposition home or self-care (01) ==
PROVIDERS: PCP Family Medicine; Visit Provider Orthopaedic Surgery Sports Medicine
DX: M17.11 Unilateral primary osteoarthritis, right knee (principal); Z51.89 Encounter for other specified aftercare
CPT/HCPCS: 97110; 97116; 97140; 97162; 97164

== ENCOUNTER 2022-05-06 08:52 | Outpatient (CLI) | payer MEDICARE, BC, SELFPAY ==
--- NOTE | 2022-05-06 09:15 | CRLHL7_ITS ---
For Patients: As a result of the 21st Century Cures Act, medical imaging exams and procedure reports are released immediately into your electronic medical record. You may view this report before your referring provider. If you have questions, please contact your health care provider. BILATERAL BREAST MRI WITHOUT AND WITH GADOLINIUM, 05/06/2022 CLINICAL HISTORY: 72-year-old woman with a history of RIGHT breast cancer invasive lobular carcinoma 2020 treated with lumpectomy and radiation. No current breast concerns. INDICATION FOR BREAST MRI: Screening breast MRI in this high-risk woman. COMPARISON STUDIES: MRI 10/28/2020. Mammogram 10/19/2021. CONTRAST: 20 cc Dotarem. TECHNIQUE: The patient was positioned prone using a breast coil. Multiple imaging sequences were obtained using 1-1.5 mm thick slices with no gap. The image sequences include T2-weighted STIR in the axial plane, T1-weighted nonfat-saturated gradient echo in the axial plane, pre- and post-contrast T1-weighted FLASH 3D with fat suppression in the axial plane, and T1-weighted FLASH high-resolution 3D with fat suppression in the sagittal plane. Image post-processing was performed on a [employer] workstation. Complex 3D rendering including maximum intensity projections (MIPS) and volumetric renderings were obtained to optimize visualization of the extent of pathology and relationship to the nipple, skin, and chest wall. This aids in determining feasibility of breast conservation surgery. Subtraction, multiplanar reconstruction, mean curve determination, and angiogenesis mapping were also performed. The study was technically adequate. FINDINGS: Amount of Fibroglandular Tissue: Scattered fibroglandular tissue. Breast Background Enhancement: Mild. RIGHT Breast: Posttreatment changes including lumpectomy scar and skin and parenchymal edema. No suspicious enhancement for malignancy. LEFT Breast: No suspicious enhancement for malignancy. Lymph Nodes: Axillary lymph nodes are normal in size and morphology. IMPRESSIONS AND RECOMMENDATIONS: No evidence for malignancy. Posttreatment changes of the RIGHT breast. Recommend annual screening mammography and, as clinically indicated, annual screening breast MRI to be offset from the mammogram by a six month interval of time. BI-RADS Category 2: Benign Salena Ling M.D. Breast/Body Radiologist [employer] Transcribed: 11:03 a.m. [email or web address] j/Dictated by: Salena Ling MD @ 05/09/2022 11:01:00 AM (Electronically Signed)
== END 2022-05-06 08:53 | disposition home or self-care (01) ==
LOC: MRI 08:53
PROVIDERS: PCP Family Medicine; Visit Provider Surgery
DX: C50.911 Malignant neoplasm of unspecified site of right female breast (principal); N60.99 Unspecified benign mammary dysplasia of unspecified breast
CPT/HCPCS: 77049; A9575

== ENCOUNTER 2022-05-11 09:54 | Outpatient (CLI) | payer MEDICARE, BC, SELFPAY | END 2022-05-11 09:55 | disposition home or self-care (01) | LOC: LONREF 09:57 | PROVIDERS: PCP Family Medicine; Visit Provider Family Medicine | DX: E78.5 Hyperlipidemia, unspecified (principal); I10 Essential (primary) hypertension | CPT/HCPCS: 80061 ==

== ENCOUNTER 2022-09-20 10:24 | Outpatient (CLI) | payer MEDICARE, BC, SELFPAY ==
--- NOTE | 2022-09-20 10:45 | CRLHL7_ITS ---
For Patients: As a result of the Century Cures Act, medical imaging exams and procedure reports are released immediately into your electronic medical record. You may view this report before your referring provider. If you have questions, please contact your health care provider. DIGITAL DIAGNOSTIC RIGHT MAMMOGRAM USING TOMOSYNTHESIS AND COMPUTER-AIDED DETECTION RIGHT BREAST ULTRASOUND CLINICAL HISTORY: RIGHT breast pain. COMPARISON: 10/19/2021. TECHNIQUE: Digital BILATERAL mammogram in four projections. Tomosynthesis and CAD utilized. Real-time ultrasound imaging of RIGHT breast with imaging documentation. BREAST COMPOSITION: There are areas of scattered fibroglandular density. FINDINGS: 3D CC/MLO BILATERAL mammogram images submitted. Postlumpectomy changes are present on the RIGHT. Benign intramammary lymph node LEFT breast. No suspicious masses or architectural distortion. Targeted RIGHT breast ultrasound performed in the area of concern at 10 o`clock 10 cm from the nipple. Normal breast tissue is present. No fluid collection or mass. No adenopathy. IMPRESSION: No evidence of malignancy. RECOMMENDATIONS: Annual BILATERAL screening mammography. Results and recommendations discussed with the patient. BI-RADS Category 2: Benign A lay language report of this examination will be provided to the patient. Dictated by Jorje Manzano MD @ 09/20/2022 11:33:45 AM jj/Dictated by: Jorje Manzano MD @ 09/20/2022 11:48:00 AM (Electronically Signed)
--- NOTE | 2022-09-20 11:15 | CRLHL7_ITS ---
For Patients: As a result of the Cures Act, medical imaging exams and procedure reports are released immediately into your electronic medical record. You may view this report before your referring provider. If you have questions, please contact your health care provider. PLEASE SEE DIGITAL DIAGNOSTIC RIGHT MAMMOGRAM PERFORMED SAME DAY CRL:elizabeth johnson/Dictated by: Jorje Manzano MD @ 09/20/2022 11:33:00 AM (Electronically Signed)
== END 2022-09-20 10:25 | disposition home or self-care (01) ==
LOC: MAMMO 10:25
PROVIDERS: PCP Family Medicine; Visit Provider Physician Assistant
DX: N64.4 Mastodynia (principal)
CPT/HCPCS: 76642; 77066; G0279

== ENCOUNTER 2022-11-22 10:45 | Outpatient (RCR) | payer MEDICARE, BC, SELFPAY ==
--- NOTE | 2022-10-11 08:58 | PT.OPEX ---
PT [place] [facility] Eval PT [facility] Outpatient Eval Start: 10/11/22 07:43 Freq: Status: Active Protocol: Document 10/11/22 07:44 [email or web address] (Rec: 10/11/22 08:46 AMOLV [id number]) E-signed By Jennifer Up, PT Physical Therapy Outpatient Evaluation Insurance Information Recert Due Date 01/05/23 Insurance Name Medicare B,Blue [employer] Medical Diagnosis Right hip pain Treating Diagnosis Right hip pain, limited hip ROM, muscle weakness, antalgic gait Referring Genesis Stein Subjective Subjective Leelee reports to PT with primary complaint of right hip pain that has been going on for about a year. It has gotten to the point that she feels pain every day, almost all days, worst with getting up from sitting for an extended period of time, sitting in a car/driving for an extended period and walking more than 1 block. She had knee replaced last December with no further complications. She is not using an AD. Last fall was July 2021 however often feels unsteady on her feet. She currently uses icy hot for her hip pain. Also notes LBP with stenosis. She has not had any images of the hip to date. Currently walking for exercise. Goals are to improve her ability to walk, get up from a chair, balance and reduce pain with chores at home. PMH: R TKA Dec 2021, L meniscus repair, chronic lumbar stenosis, cancer Pain Comments 10/20 worst Date of Last Physician Visit 09/08/22 Current Work Status Retired Precautions Therapy Limitations/Systems Review Not Limited Objective Other/Pertinent Objective LE ROM (R/L): -Hip Ext: 5/10 -Hip Flx: 95-pull into lateral hip/100 -Hip ER: 35-pull into lateral hip/40 -Hip IR: 5/10 LE Strength (R/L): -Hip Abd: R: 4-/5, L: 5-/5 -Hip Add: R: 4+/5, L: 5/5 -Hip Ext: R: 4-/5, L: 5-/5 -Hip Flx: R: 4+/5, L: 5/5 Hip Labral: -HARRIET: - R -FADIR: -R SL balance: L 12 sec, R unable without UE support d/t pain; trendelenburg stance B Gait: reverse trendelenburg, more prevalent on R compared to L Palpation: TTP R glut med Humberto test: + R Mayelin test: - R Functional Test Performed & Score LEFS: 28 Assessment Assessment/Impression Patient is a 72 year old female presenting to physical therapy for evaluation and treatment of right hip pain. Patient presents with limited hip ROM, glut med weakness, antalgic gait. These impairments are limiting the patients ability to get up from a chair, walk > couple blocks, drive without discomfort. Patient appears motivated to participate in PT and presents with good prognosis to improve mobility, strength, proprioception and return to functional activities with skilled physical therapy intervention. Primary Functional Limitations get up from a chair, walk > couple blocks, drive without discomfort Plan of Care Rehabilitation Potential Good Physical Therapy Goals In 6 weeks (11/22/22) Patient will demonstrate full PROM B hips without end range pain into flexion, ER or IR. 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 Pt will demonstrate 5/5 strength MMT in glut max & glut med to improve dynamic control with SLS activities and gait. Patient will walk for 60 min, reporting pain < 2/10 in order to ambulate in home and in community. 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 with <2 /10 hip pain Treatment Plan/Direct Interventions Gait Training,Ice/Cold/ Vasopneumatic,Joint Mobilization,Manual Therapy, Neuromuscular Re-ed,Self-Care/ Home Management,Therapeutic Activities,Therapeutic Exercises Frequency/Duration 1x/wk for 4 weeks with additional 4 sessions prn based on progress Patient Will Be Discharged From Therapy Completion of LTG(s), Independent w/HEP, Independently Progressing Evaluation Billing Untimed Code Treatment Minutes 25 Complexity Low Certification Information Initial Certification Date 10/11/22 Ending Certification Date 01/05/23 Provider Signature Shows Agreement With POC & Medical Necessity Physician Signature & Date Requested Please Sign/Date Here Physician Comment/Change : Physician NPI Number #
== END 2022-11-22 12:46 | disposition home or self-care (01) ==
PROVIDERS: PCP Family Medicine; Visit Provider Nurse Practitioner Family
DX: M25.551 Pain in right hip (principal); Z51.89 Encounter for other specified aftercare
CPT/HCPCS: 97110; 97161

== ENCOUNTER 2023-02-16 12:50 | Outpatient (RCR) | payer MEDICARE, BC, SELFPAY ==
--- NOTE | 2023-02-23 16:15 | ONC.NURNOTE ---
Called after Fatemeh Ruiz reviewed scans and let patient know results. Hip x-ray with degenerative changes and bone spur-patient to monitor and Mammogram without cancer but noted was a skin lesion so patient to have a surgical consult March 14.
== END 2023-03-07 23:59 | disposition home or self-care (01) ==
LOC: CCIC 12:50
PROVIDERS: PCP Family Medicine; Visit Provider Physician Assistant
DX: C50.911 Malignant neoplasm of unspecified site of right female breast (principal); Z17.0 Estrogen receptor positive status [ER+]; Z79.811 Long term (current) use of aromatase inhibitors; M25.551 Pain in right hip; M19.011 Primary osteoarthritis, right shoulder; L98.8 Other specified disorders of the skin and subcutaneous tissue; N60.91 Unspecified benign mammary dysplasia of right breast
CPT/HCPCS: 99212; 99213; 99214; 99215

== ENCOUNTER 2023-02-22 07:26 | Outpatient (CLI) | payer MEDICARE, BC, SELFPAY ==
--- NOTE | 2023-02-22 07:45 | CRLHL7_ITS ---
For Patients: As a result of the Cures Act, medical imaging exams and procedure reports are released immediately into your electronic medical record. You may view this report before your referring provider. If you have questions, please contact your health care provider. DIGITAL DIAGNOSTIC RIGHT MAMMOGRAM USING TOMOSYNTHESIS AND COMPUTER-AIDED DETECTION CLINICAL HISTORY: RIGHT breast skin lesion. COMPARISON: 09/20/2022, 10/19/2021. TECHNIQUE: Digital RIGHT mammogram in two projections. Tomosynthesis and CAD utilized. BREAST COMPOSITION: There are areas of scattered fibroglandular density. FINDINGS: 3D CC/MLO RIGHT breast mammogram images submitted. Post treatment changes noted. Skin lesion is present. No suspicious masses or architectural distortion within the breast parenchyma. IMPRESSION: Skin lesion is present. No underlying lesion within the breast parenchyma. RECOMMENDATIONS: Normal RIGHT breast mammogram status post RIGHT breast treatment. The skin lesion may require skin biopsy. Results and recommendations discussed with the patient. BI-RADS Category 2: Benign A lay language report of this examination will be provided to the patient. Dictated by Jorje Manzano MD @ 02/22/2023 8:49:08 AM jj/Dictated by: Jorje Manzano MD @ 02/22/2023 8:49:00 AM (Electronically Signed)
--- NOTE | 2023-02-22 09:30 | CRLHL7_ITS ---
For Patients: As a result of the Cures Act, medical imaging exams and procedure reports are released immediately into your electronic medical record. You may view this report before your referring provider. If you have questions, please contact your health care provider. Indication: oropharyngeal dysphagia Technique: Pelvis and right hip 3 views Comparison: None Findings: Spurring is present at both hip joints. There is no fracture. Mild spurring at the iliac crests. No suspicious osseous lesion. Impression: Mild degenerative joint disease right hip. Dictated by Jorje Manzano MD @ 02/22/2023 10:45:52 AM (Electronically Signed)
== END 2023-02-22 07:27 | disposition home or self-care (01) ==
PROVIDERS: PCP Family Medicine; Visit Provider Physician Assistant
DX: N64.9 Disorder of breast, unspecified (principal)
CPT/HCPCS: 73502; 77065; G0279

== ENCOUNTER 2023-04-19 09:19 | Outpatient (CLI) | payer MEDICARE, BC, SELFPAY ==
--- NOTE | 2023-04-19 09:30 | CRLHL7_ITS ---
For Patients: As a result of the Century Cures Act, medical imaging exams and procedure reports are released immediately into your electronic medical record. You may view this report before your referring provider. If you have questions, please contact your health care provider. BILATERAL BREAST MRI WITHOUT AND WITH GADOLINIUM CLINICAL HISTORY: Increased risk for breast cancer due to personal history of RIGHT breast cancer diagnosed in 2020 treated with lumpectomy and radiation therapy. No current breast related concerns. INDICATION FOR BREAST MRI: High-risk screening breast MRI. COMPARISON STUDIES: Breast MRI 05/06/2022. Diagnostic RIGHT mammogram 02/22/2023, BILATERAL mammogram and RIGHT breast ultrasound 09/20/2022 and screening mammogram 10/19/2021. CONTRAST: 20 mL Dotarem. TECHNIQUE: The patient was positioned prone using a breast coil. Multiple imaging sequences were obtained using 1-1.5 mm thick slices with no gap. The image sequences include T2-weighted STIR in the axial plane, T1-weighted nonfat-saturated gradient echo in the axial plane, pre- and post-contrast T1-weighted FLASH 3D with fat suppression in the axial plane, and T1-weighted FLASH high resolution 3D with fat suppression in the sagittal plane. Image post-processing was performed on a [employer] workstation. Complex 3D rendering including maximum intensity projections (MIPS) and volumetric renderings were obtained to optimize visualization of the extent of pathology and relationship to the nipple, skin, and chest wall. This aids in determining feasibility of breast conservation surgery. Subtraction, multiplanar reconstruction, mean curve determination, and angiogenesis mapping were also performed. The study was technically adequate. FINDINGS: Amount of Fibroglandular Tissue: Scattered fibroglandular tissue. Breast Background Enhancement: Minimal. RIGHT Breast: There are expected postsurgical changes in the lower central breast. Mild skin thickening and breast and skin edema involving the lower breast is unchanged and consistent with post radiation change. There is a 2 cm enhancement within the skin involving the lower outer breast at approximately 8 o`clock, 3.5 cm from the nipple. No suspicious mass or enhancement within the breast. LEFT Breast: There is susceptibility artifact from a biopsy marking clip in the upper breast. No suspicious mass or enhancement within the breast. Lymph Nodes: No abnormal morphology lymph nodes. IMPRESSIONS AND RECOMMENDATIONS: 1. There is 2 cm abnormal enhancement within the skin involving the lower outer breast at approximately 8 o`clock, 3.5 cm from the nipple. Correlate with any recent history of skin biopsy and with physical exam for any skin lesions. 2. Otherwise no abnormal enhancement within the breast to suggest malignancy. 3. Annual screening mammography is recommended. If clinically indicated, continued screening breast MRI may also be performed, staggered at six-month intervals with screening mammography. BI-RADS Category 2: Benign. Dictated by Cyndi Campo MD @ 04/21/2023 11:50:25 AM SP/Dictated by: Cyndi Campo MD @ 04/21/2023 11:50:00 AM (Electronically Signed)
== END 2023-04-19 09:20 | disposition home or self-care (01) ==
LOC: MRI 09:20
PROVIDERS: PCP Family Medicine; Visit Provider Physician Assistant
DX: C50.911 Malignant neoplasm of unspecified site of right female breast (principal); Z12.39 Encounter for other screening for malignant neoplasm of breast
CPT/HCPCS: 77049; 80048; 80061; C8908; C8937; A9575

== ENCOUNTER 2023-06-25 19:38 | Emergency (ER) | payer MEDICARE, BC, SELFPAY ==
--- NOTE | 2023-06-25 19:46 | XR_ITS ---
Patient: KALEIGH GUTHRIE Facility:?[facility] Patient ID:?[id number] Site Patient ID:?[id number]. Site :?[id number] Study:?XRay-Chest PORTABLE-06/25/2023 7:59:29 PM Ordering Physician:BRISA Final Report: INDICATION: Shortness of breath. TECHNIQUE: Chest 1 views. COMPARISON: None. FINDINGS: Cardiovascular and mediastinum: Heart size and vasculature are normal in caliber and appearance. Lungs and pleural spaces: Low lung volumes. No sign of infiltrate or mass. No sign of pleural effusion. No pneumothorax. Bones and soft tissues: No significant findings. IMPRESSION: Low lung volumes. No acute or significant findings. Dictated by Travon Sumner MD @ 06/25/2023 8:33:31 PM Signed by:?Travon Sumner MD @06/25/2023 8:33:31 PM (Electronic Signature)
[2023-06-25 19:53] VITALS: BP 157/113; PULSE 84; RESP 36; TEMP 36.4; O2SAT 95; BMI 30.8
--- NOTE | 2023-06-25 19:55 | ED_ITS ---
HPI - General Adult General Time Seen by Provider: 19:55 Date Seen: 06/25/23 Chief complaint: Shortness of Breath/Dyspnea Stated complaint: Fall;rightside neck, breast, trouble breathing Time Seen by Provider: 06/25/23 19:47 Source: patient, family and RN notes reviewed Mode of arrival: ambulatory Limitations: no limitations History of Present Illness HPI narrative: This 73-year-old female comes to the ER accompanied by her daughter with complaint of right chest wall pain and shortness of breath. She fell earlier today, about noon. She fell onto the concrete. She missed the last step going up the steps. She states she has some mild right neck pain that happened after the fall and is still there, is not going down her arms at all. She took 2 ibuprofen earlier today around 11:00 a.m., has taken nothing since. She does have underlying COPD/asthma per her report but has not been sick with anything. She is having increasing right chest wall pain. No abdominal symptoms. No pain into her arms, no pain in her extremities at all. Her problem list reveals history of breast cancer, hypertension, hyperlipidemia, ASCVD, obstructive sleep apnea, COPD, asthma, pulmonary hypertension, spinal stenosis, right hip pain, GERD, osteoarthritis right shoulder, osteopenia, diverticulosis, degenerative joint disease, obesity. Her current medicines listed are acetaminophen p.r.n., anastrozole, 81 mg aspirin, fluticasone inhaler, furosemide, gabapentin, ipratropium inhaler, losartan, magnesium, omeprazole, rosuvastatin, Spiriva inhaler. Note aspirin is the only blood thinner she uses, she did take ibuprofen earlier before the injury. Her daughter was talking to her on the phone around 6:00 p.m., notice she was short of breath and having difficulty breathing, decided to bring her in. Related Data Home Medications Medication Instructions Recorded Confirmed aspirin 81 mg tablet,delayed 81 mg PO QDAY 11/12/21 04/19/23 release fluticasone propionate 220 1 puff inhalation BID 11/12/21 04/19/23 mcg/actuation HFA aerosol inhaler (Flovent HFA) magnesium oxide 400 mg (241.3 mg 400 mg PO QDAY 11/12/21 04/19/23 magnesium) tablet Previous Rx's Medication Instructions Recorded ipratropium 20 mcg-albuterol 100 1 puff inhalation Q6H #4 grams 10/04/22 mcg/actuation mist for inhalation (Combivent Respimat) tiotropium bromide 18 mcg capsule 1 cap inhalation QDAY #90 12/14/21 with inhalation device (Spiriva inhalations with HandiHaler) acetaminophen 500 mg capsule 500 - 1,000 mg (1 - 2 x 500 mg) PO 12/20/21 Q6H PRN #100 caps anastrozole 1 mg tablet (Arimidex) 1 mg PO QDAY Hormone receptor 04/19/23 positive breast cancer #100 tabs furosemide 20 mg tablet 20 mg PO QDAY #90 tabs 04/19/23 gabapentin 300 mg capsule See Rx Instructions PO TID #540 04/19/23 caps losartan 100 mg tablet 100 mg PO QDAY #90 tabs 04/19/23 omeprazole 40 mg capsule,delayed 40 mg PO QDAY #90 caps 04/19/23 release rosuvastatin 20 mg tablet See Rx Instructions .Route 04/19/23 .COMPLEX #90 tabs Allergies Allergy/AdvReac Type Severity Reaction Status Date / Time contact metal agent Allergy Mild Verified 04/19/23 13:42 codeine Allergy Rash Verified 04/19/23 13:42 Penicillins Allergy Rash Verified 04/19/23 13:42 Review of Systems Status of ROS: Reports: 6 or more systems reviewed and unremarkable except as noted in History and below PFSH PFS Medical History Right hip pain ?M25.551 - Pain in right hip (ICD-10) Cyst of Bartholin's gland ?N75.0 - Cyst of Bartholin's gland (ICD-10) Tobacco use ?Z72.0 - Tobacco use (ICD-10) Surgical History Status post right knee replacement (12/20/21) ?Z96.651 - Presence of right artificial knee joint (ICD-10) Status post coronary angiogram ?Z98.890 - Other specified postprocedural states (ICD-10) History of arthroplasty of right knee ?Z96.651 - Presence of right artificial knee joint (ICD-10) Status post arthroscopy of left knee ?Z98.890 - Other specified postprocedural states (ICD-10) History of parotid gland excision ?Z90.49 - Acquired absence of other specified parts of digestive tract (ICD- 10) History of removal of ovarian cyst ?Z98.890 - Other specified postprocedural states (ICD-10) ?Z87.42 - Personal history of other diseases of the female genital tract (ICD-10) S/P radiation therapy ?Z92.3 - Personal history of irradiation (ICD-10) S/P lumpectomy of breast (~11/2020) ?Z98.890 - Other specified postprocedural states (ICD-10) S/P ger ?Z90.49 - Acquired absence of other specified parts of digestive tract (ICD- 10) Family History Father Bladder cancer Mother CHF (congestive heart failure) Social History Narrative: Health Care Directive on file , completed 10/02/13 Patient has active power of defense attorney for property Financial power of defense attorney completed on 10/02/13 Smoking Status: Former smoker What tobacco products do you use: cigarettes Smoking quit date/years: <= 15 years ago Do you use any of these nicotine containing products: None Second hand tobacco smoke exposure: No How often do you have a drink containing alcohol: monthly or less Alcohol type: wine How many standard drinks containing alcohol do you have on a typical day: 1 or 2 How often do you have six or more drinks on one occasion: Never AUDIT-C Alcohol total score: 1 Non-prescribed substance use: denies use and marijuana (any form) Non-prescribed substance use details: CBD cream but has not used for a couple weeks Caffeine: Yes (1-2 cups/day) Little interest or pleasure in doing things: several days Feeling down, depressed, or hopeless: several days Are you using contraception or practicing any form of control: No Exam Const: Vital Signs, click to edit/add: Vital Signs - 24 hr 06/25/23 19:53 06/25/23 20:30 06/25/23 21:16 Temperature 97.6 F Pulse Rate 79 Pulse Rate [Pulse Oximeter] 84 Respiratory Rate 36 H Blood Pressure [Ri ght Upper Arm] 157/113 H Pulse Oximetry 95 93 95 Oxygen Delivery Me thod Room Air This 73-year-old female is alert, interactive, no apparent distress but ta chypneic. She can speak in short phrases. Pupils equal round, sclera clear, conjugate gaze, face atraumatic. Head atraumatic. No midline tenderness of her cervical spine but she states it hurts on the right side of her neck, no pre should bowl point tenderness on palpation. No cervical adenopathy, no neck masses noted. She has full range of motion of her extremities. Is able to sit up, lungs are clear, good air entry, no wheezing crackles. CV regular rate and rhythm, no murmur, normal S1, normal S2. Abdomen is obese but soft, rebound or guarding, no organomegaly. She has some right sided anterolateral chest wall tenderness along the lower border but no step-off or crepitus. Documenting provider has reviewed patient's vital signs: yes Course Course ED Course: Portable chest x-ray was done on arrival, I do not appreciate pneumothorax or definite rib fractures. Will wait for the radiology over read on this and proceed with chest CT imaging with IV contrast. An IV will be placed, she declines anything for pain meds at this time. We did discuss taking some Tylenol which she will do. If she decides she needs something stronger she is to let us know. Will get baseline labs. She certainly could have rib fractures that we cannot identify on her one-view chest x-ray. There could be internal trauma stitches pulmonary contusion. This does not sound like it is an acute COPD exacerbation, symptoms started after the fall in with pain in her chest wall. She is not currently hypoxic. There could be a subtle pneumothorax not seen on chest x-ray that we might identify in chest CT. Will get a point of care creatinine to expedite our CT imaging. Reevaluation(s) Time of Reevaluation #1: 20:37 Reevaluation #1: The x-ray centrifugal chiller technician was waiting for me when I came out of another patient room, patient is reporting that she wants her right knee scanned. She is reportedly stating starting to hurt from her fall. Will put in for x-rays of her right knee, the centrifugal chiller technician will let her know. Time of Reevaluation #2: 21:54 Reevaluation #2: Reviewed with patient that she has a right 6th nondisplaced anterior rib fracture, corresponds with her pain. She does not take narcotics, reviewed with her pain management. She is planning on just using Tylenol and ibuprofen. We d iscussed in reviewed splinting technique for stabilization of the chest wall with movement, coughing, sneezing, etc.. There is no knee fracture which she is happy about. No fractures of the cervical spine. Vital Signs Vital signs: Initial Vital Signs Temperature 97.6 F 06/25/23 19:53 Temperature Source Temporal Artery Scan 06/25/23 19:53 Pulse Rate 84 06/25/23 19:53 Respiratory Rate 36 H 06/25/23 19:53 Blood Pressure 157/113 H 06/25/23 19:53 Blood Pressure Mean 127 H 06/25/23 19:53 Blood Pressure Position Sitting 06/25/23 19:53 Pulse Oximetry 95 06/25/23 19:53 Oxygen Delivery Method Room Air 06/25/23 19:53 Vital Signs Temperature 97.6 F 06/25/23 19:53 Pulse Rate 84 06/25/23 19:53 Respiratory Rate 36 H 06/25/23 19:53 Blood Pressure 157/113 H 06/25/23 19:53 Pulse Oximetry 95 06/25/23 19:53 Oxygen Delivery Method Room Air 06/25/23 19:53 Temperature 97.6 F 06/25/23 19:53 Pulse Rate 79 06/25/23 21:16 Respiratory Rate 36 H 06/25/23 19:53 Blood Pressure 157/113 H 06/25/23 19:53 Pulse Oximetry 95 06/25/23 21:16 Oxygen Delivery Method Room Air 06/25/23 19:53 Medications Administered Medications: Discontinued Medications Generic Name Dose Route Start Last Admin Trade Name Ryq PRN Reason Stop Dose Admin Acetaminophen 1,000 mg 06/25/23 20:14 06/25/23 20:23 Acetaminophen 500 Mg Tablet PO 06/25/23 20:15 1,000 mg ONCE ONE Administration Medical Decision Making Lab Data Lab results reviewed: Yes I reviewed the patient's lab results Labs: Lab Results 06/25/23 06/25/23 Range/Units 19:57 20:10 WBC 9.16 (4.50-11.00) K/uL RBC 4.77 (4.00-5.20) m/uL Hgb 14.1 (12.0-16.0) gm/dL Hct 44.3 (33.0-51.0) % MCV 93 (80-100) fL MCH 30 (26-34) pg MCHC 32 (32-36) gm/dL RDW Coeff of Radhika 13.7 (11.5-15.5) % Plt Count 243 (140-440) K/uL Neut % (Auto) 60.8 (42.0-72.0) % Lymph % (Auto) 31.7 (20-44) % [place] % (Auto) 5.7 (0.0-11.0) % Eos % (Auto) 1.5 (0.0-7.0) % Baso % (Auto) 0.1 (0.0-3.0) % Neut # (Auto) 5.57 (1.7-7.0) K/uL Lymph # (Auto) 2.90 (0.90-2.90) K/uL [place] # (Auto) 0.50 (0.00-0.90) K/UL Eos # (Auto) 0.14 (0.00-0.50) K/uL Baso # (Auto) 0.01 (0.00-0.30) K/uL Abs Immat Gran (auto) 0.02 (0.00-0.30) K/uL Imm/Tot Granulo (auto) 0.2 % VBG pH 7.396 (7.32-7.43) VBG pCO2 45 (40-50) mmHG VBG pO2 < 30.1 (25-47) mmHG VBG HCO3 28 (21-28) mmol/L Sodium 141 (135-149) mmol/L Potassium 3.6 (3.6-5.1) mmol/L Chloride 109 (96-114) mmol/L Carbon Dioxide 25 (20-32) mmol/L Anion Gap 7 (7-15) mEq/L BUN 26 (7-30) mg/dL Creatinine 0.9 (0.5-1.5) mg/dL Estimated Creat Clear 45.09 Estimated GFR 68 ml/min Glucose 132 H (60-115) mg/dL Calcium 9.9 (8.4-10.6) mg/dL Total Bilirubin 0.4 (0.1-1.5) mg/dL AST 31 (12-35) U/L ALT 23 (4-35) U/L Alkaline Phosphatase 133 (40-150) U/L Total Protein 8.7 H (6.0-8.3) g/dL Albumin 4.7 (3.3-5.0) g/dL POC Creatinine 0.9 (0.6-1.3) mg/dl Imaging Data Chest x-ray: Attestation: I have reviewed the pertinent imaging results. My impression: Do not appreciate acute pathology on my preliminary review. Radiologist's impression: Patient: KALEIGH GUTHRIE Facility:?[facility] Patient ID:?[id number] Site Patient ID:?[id number]. Site :?1950 Study:?XRay Chest PORTABLE-06/25/2023 7:59:29 PM Ordering Physician:BRISA Final Report: INDICATION: Shortness of breath. TECHNIQUE: Chest 1 views. COMPARISON: None. FINDINGS: Cardiovascular and mediastinum: Heart size and vasculature are normal in caliber and appearance. Lungs and pleural spaces: Low lung volumes. No sign of infiltrate or mass. No sign of pleural effusion. No pneumothorax. Bones and soft tissues: No significant findings. IMPRESSION: Low lung volumes. No acute or significant findings. Dictated by Travon Sumner MD @ 06/25/2023 8:33:31 PM (Electronic Signature) CT scan - chest: Attestation: I have reviewed the pertinent imaging results. Radiologist's impression: Patient: KALEIGH GUTHRIE Facility:?[facility] Patient ID:?[id number] Site Patient ID:?[id number]. Site :?1950 Study:?CT Chest W/ISOVUE 370 75CC-06/25/2023 9:08:59 PM Ordering Physician:?AVINASH Final Report: INDICATION: Shortness of breath. TECHNIQUE: CT chest was acquired with 75 cc Omnipaque 350 IV contrast. COMPARISON: None. FINDINGS: Heart and vasculature: Heart size is normal. Trace coronary artery calcifications thoracic aorta and pulmonary artery are normal in caliber. No central pulmonary embolism. Lungs and pleura: No suspicious nodules or infiltrates. Scattered atelectasis no pleural effusions, pleural thickening, or pneumothorax. Lymph nodes/mediastinum: Small hiatal hernia. No mediastinal, hilar, or axillary adenopathy. Chest wall: Posttreatment changes in the right breast with retroareolar nodule and skin thickening. Recommend clinical correlation. Upper abdomen: No acute or significant findings. Bones: Acute nondisplaced right anterior 6th rib fracture (series 4/image 58). IMPRESSION: Acute nondisplaced right anterior 6th rib fracture. Otherwise, no acute intrathoracic abnormality. Please note that all CT scans at this facility use dose modulation, iterative reconstruction, and/or weight-based dosing when appropriate to reduce radiation dose to as low as reasonably achievable. Dictated by Travon Sumner MD @ 06/25/2023 9:47:47 PM (Electronic Signature) XR right knee: Attestation: I have reviewed the pertinent imaging results. Radiologist's impression: Patient: KALEIGH GUTHRIE Facility:?[facility] Patient ID:?[id number] Site Patient ID:?[id number]. Site :?1950 Study:?XRay Knee Right 2 VIEW-06/25/2023 9:00:50 PM Ordering Physician:?AVINASH Final Report: INDICATION: Trauma. TECHNIQUE: Right knee radiographs, 2 views. COMPARISON: None. FINDINGS: Status post total right knee arthroplasty. The hardware appears intact. No evidence of hardware loosening or failure. No periprosthetic fracture. No acute fractures or dislocation. The joint spaces are preserved. No significant joint effusion. No significant soft tissue edema or radiopaque foreign bodies. IMPRESSION: 1. Status post total right knee arthroplasty without evidence of hardware failure. 2. No acute fractures or dislocation. Dictated by Gustavo Kaur MD @ 06/25/2023 9:37:58 PM (Electronic Signature) CT- Other: Attestation: I have reviewed the pertinent imaging results. Radiologist's impression: Patient: KALEIGH GUTHRIE Facility:?[facility] Patient ID:?[id number] Site Patient ID:?[id number]. Site :?1950 Study:?CT Spine Cervical W/O-06/25/2023 9:09:54 PM Ordering Physician:BRISA Final Report: INDICATION: Fall. Neck pain. TECHNIQUE: Noncontrast CT images of the cervical spine. COMPARISON: None. FINDINGS: Mild leftward cervical curvature. The cervical lordosis is maintained. No acute fracture or traumatic subluxation. Grade 1 anterolisthesis of C4 on C5. Advanced disc height loss at C5-6. Left facet joint ankylosis at C2-3. Multilevel posterior disc osteophyte complexes contribute up to mild spinal canal narrowing. Multilevel uncinate spurring and facet arthropathy contributing up to moderate to severe neural foraminal stenosis on the right at C5-6. The lung apices are clear. IMPRESSION: 1. No acute fracture or traumatic subluxation. 2. Multilevel cervical spondylosis. Please note that all CT scans at this facility use dose modulation, iterative reconstruction, and/or weight-based dosing when appropriate to reduce radiation dose to as low as reasonably achievable. Dictated by Enrique Sinclair MD @ 06/25/2023 9:19:07 PM (Electronic Signature) Discharge Plan Discharge Clinical Impression: Fracture of rib Qualifiers: Encounter type: initial encounter Rib fracture type: single rib Fracture type: closed Laterality: right Qualified Code(s): S22.31XA - Fracture of one rib, right side, initial encounter for closed fracture Fall Qualifiers: Encounter type: initial encounter Qualified Code(s): W19.XXXA - Unspecified fall, initial encounter Cervical strain, acute Qualifiers: Encounter type: initial encounter Qualified Code(s): S16.1XXA - Strain of muscle, fascia and tendon at neck level, initial encounter Contusion of right knee Qualifiers: Encounter type: initial encounter Qualified Code(s): S80.01XA - Contusion of right knee, initial encounter Patient Disposition: Home, Self-Care Condition: Stable Instructions: Cervical Strain (ED), Rib Fracture (ED), Contusion in Adults (ED) Additional Instructions: Use [id number]-[id number] medicines as you would normally, follow bottle directions. Consider doing Tylenol 1000 mg 3 times a day baseline for pain. Hang onto the chest wall or use a pillow against the chest wall with movement, coughing or sneezing. This help stabilize the chest wall minimize pain. If you develop increasing pain, have fever or cough developed, are becoming more short of breath, do recommend re-evaluation. Overall, this can take about 6 weeks to completely heal. Modify activities as mediated by your pain response. Activity Level: Activity as Tolerated Prescriptions: No Action aspirin 81 mg tablet,delayed release (DR/EC) 81 mg PO QDAY Hold Instructions: Resume on 01/20/22. Resume upon completion of the aspirin 81 mg twice daily dosing recommended per Orthopedic surgery. fluticasone propionate [Flovent HFA] 220 mcg/actuation HFA aerosol inhaler 1 puff inhalation BID magnesium oxide 400 mg (241.3 mg magnesium) tablet 400 mg PO QDAY furosemide 20 mg tablet 20 mg PO QDAY Qty: 90 3RF losartan 100 mg tablet 100 mg PO QDAY Qty: 90 3RF omeprazole 40 mg capsule,delayed release(DR/EC) 40 mg PO QDAY Qty: 90 3RF rosuvastatin 20 mg tablet See Rx Instructions .ROUTE .COMPLEX Qty: 90 3RF Dose Instruction: TAKE 1 TABLET BY MOUTH DAILY Rx Instructions: TAKE 1 TABLET BY MOUTH DAILY anastrozole [Arimidex] 1 mg tablet 1 mg PO QDAY Qty: 100 3RF gabapentin 300 mg capsule See Rx Instructions PO TID Qty: 540 4RF Rx Instructions: 600 mg QAM, 300 mg Qmidday, 900 mg QHS orally daily; 600MG IN THE AM, 300MG MID-DAY, AND 900MG AT HS acetaminophen 500 mg capsule 500 - 1,000 mg PO Q6H MDD 4000mg PRNQty: 100 0RF Spiriva with HandiHaler 18 mcg capsule, w/inhalation device 1 cap inhalation QDAY Qty: 90 3RF Rx Instructions: puncture 1 cap using device; one dose = 2 inhalations Combivent Respimat 20-100 mcg/actuation mist 1 puff inhalation Q6H Qty: 4 3RF Follow Up/Referrals: Bryant Jc MD [Primary Care Provider] - Stand Alone Forms: [facility] Info Instructions
--- NOTE | 2023-06-25 19:59 | CT_ITS ---
Patient: KALEIGH GUTHRIE Facility:?[facility] Patient ID:?[id number] Site Patient ID:?[id number]. Site :?1950 Study:?CT-Spine Cervical W/O-06/25/2023 9:09:54 PM Ordering Physician:BRISA Final Report: INDICATION: Fall. Neck pain. TECHNIQUE: Noncontrast CT images of the cervical spine. COMPARISON: None. FINDINGS: Mild leftward cervical curvature. The cervical lordosis is maintained. No acute fracture or traumatic subluxation. Grade 1 anterolisthesis of C4 on C5. Advanced disc height loss at C5-6. Left facet joint ankylosis at C2-3. Multilevel posterior disc osteophyte complexes contribute up to mild spinal canal narrowing. Multilevel uncinate spurring and facet arthropathy contributing up to moderate to severe neural foraminal stenosis on the right at C5-6. The lung apices are clear. IMPRESSION: 1. No acute fracture or traumatic subluxation. 2. Multilevel cervical spondylosis. Please note that all CT scans at this facility use dose modulation, iterative reconstruction, and/or weight-based dosing when appropriate to reduce radiation dose to as low as reasonably achievable. Dictated by Enrique Sinclair MD @ 06/25/2023 9:19:07 PM Signed by:?Enrique Sinclair MD @06/25/2023 9:19:07 PM (Electronic Signature)
[2023-06-25 20:20] LABS: Basophils Absolute Auto 0.01 K/uL (0.00-0.30); Basophils Percent Auto 0.1 % (0.0-3.0); Eosinophils Absolute Auto 0.14 K/uL (0.00-0.50); Eosinophils Percent Auto 1.5 % (0.0-7.0); HCO3 VBG 28 mmol/L (21-28); Hematocrit 44.3 % (33.0-51.0); Hemoglobin* 14.1 gm/dL (12.0-16.0); Immature Granulocytes Abs Auto 0.02 K/uL (0.00-0.30); Immature Granulocytes Pct Auto 0.2 %; Lymphocytes Percent Auto 31.7 % (20-44); Mean Corpuscular HGB Conc 32 gm/dL (32-36); Mean Corpuscular Hemoglobin 30 pg (26-34); Mean Corpuscular Volume 93 fL (80-100); Monocytes Percent Auto 5.7 % (0.0-11.0); Neutrophils Absolute Auto 5.57 K/uL (1.7-7.0); Neutrophils Percent Auto 60.8 % (42.0-72.0); PCO2 VBG 45 mmHG (40-50); PO2 VBG < 30.1 mmHG (25-47); Platelet Count* 243 K/uL (140-440); RDW Coefficient of Variation % 13.7 % (11.5-15.5); Red Blood Count 4.77 m/uL (4.00-5.20); White Blood Count* 9.16 K/uL (4.50-11.00); pH VBG 7.396 (7.32-7.43)
[2023-06-25] MEDS: ACETAMINOPHEN 500 MG TABLET 1000 MG PO (20:23)
[2023-06-25 20:25] LABS: Creatinine, Point-of-Care* 0.9 mg/dl (0.6-1.3)
[2023-06-25 20:30] VITALS: O2SAT 93
[2023-06-25 20:31] LABS: Slide Review Reflex No
--- NOTE | 2023-06-25 20:36 | XR_ITS ---
Patient: KALEIGH GUTHRIE Facility:?[facility] Patient ID:?[id number] Site Patient ID:?[id number]. Site :?1950 Study:?XRay-Knee Right 2 VIEW-06/25/2023 9:00:50 PM Ordering Physician:BRISA Final Report: INDICATION: Trauma. TECHNIQUE: Right knee radiographs, 2 views. COMPARISON: None. FINDINGS: Status post total right knee arthroplasty. The hardware appears intact. No evidence of hardware loosening or failure. No periprosthetic fracture. No acute fractures or dislocation. The joint spaces are preserved. No significant joint effusion. No significant soft tissue edema or radiopaque foreign bodies. IMPRESSION: 1. Status post total right knee arthroplasty without evidence of hardware failure. 2. No acute fractures or dislocation. Dictated by Gustavo Kaur MD @ 06/25/2023 9:37:58 PM Signed by:?Gustavo Kaur MD @06/25/2023 9:37:58 PM (Electronic Signature)
[2023-06-25 20:40] LABS: Albumin* 4.7 g/dL (3.3-5.0); Chloride* 109 mmol/L (96-114); Potassium* 3.6 mmol/L (3.6-5.1); Sodium* 141 mmol/L (135-149)
[2023-06-25 20:42] LABS: Anion Gap 7 mEq/L (7-15); Carbon Dioxide* 25 mmol/L (20-32); Creatinine* 0.9 mg/dL (0.5-1.5); Est. Creatinine Clearance* 45.09; Estimated Glomerular Filt Rate 68 ml/min
[2023-06-25 20:43] LABS: Alanine Aminotransferase* 23 U/L (4-35); Alkaline Phosphatase* 133 U/L (40-150); Aspartate Amino Transferase* 31 U/L (12-35); Bilirubin Total* 0.4 mg/dL (0.1-1.5); Blood Urea Nitrogen* 26 mg/dL (7-30); Calcium* 9.9 mg/dL (8.4-10.6); Glucose* 132 mg/dL (60-115); Total Protein* 8.7 g/dL (6.0-8.3)
[2023-06-25 21:16] VITALS: PULSE 79; O2SAT 95
[2023-06-25 21:30] VITALS: PULSE 77; O2SAT 95
[2023-06-25 21:45] VITALS: PULSE 76; O2SAT 95
[2023-06-25 22:00] VITALS: PULSE 77; O2SAT 96
== END 2023-06-25 22:11 | disposition home or self-care (01) ==
PROVIDERS: Emergency Provider Family Medicine; PCP Family Medicine
DX: S22.31XA Fracture of one rib, right side, initial encounter for closed fracture (principal); S16.1XXA Strain of muscle, fascia and tendon at neck level, initial encounter; S80.01XA Contusion of right knee, initial encounter; W19.XXXA Unspecified fall, initial encounter
CPT/HCPCS: 36415; 71045; 71260; 72125; 73560; 80053; 82565; 82803; 85025; 94761; 99284; 99285; A9270; Q9967

== ENCOUNTER 2023-10-04 14:22 | Outpatient (CLI) | payer MEDICARE, BC, SELFPAY ==
--- NOTE | 2023-10-04 14:40 | CRLHL7_ITS ---
For Patients: As a result of the Century Cures Act, medical imaging exams and procedure reports are released immediately into your electronic medical record. You may view this report before your referring provider. If you have questions, please contact your health care provider. BILATERAL SCREENING MAMMOGRAM WITH COMPUTER-AIDED DETECTION AND TOMOSYNTHESIS TECHNIQUE: CC and MLO views were obtained. These mammographic images have been obtained using full-field digital technique. These mammographic images were interpreted with the benefit of computer-aided detection. Breast tomosynthesis was used in this interpretation. COMPARISON FILM: 02/22/23, 09/20/22, 10/19/21 . FINDINGS: There are scattered areas of fibroglandular density. IMPRESSION: There is no radiographic evidence for malignancy. ASSESSMENT: BI-RADS Category 1: Negative RECOMMENDATION: Routine screening mammogram in 1 year. A lay language report of this examination will be provided to the patient. JORJE ALEXANDRE M.D. Diagnostic Radiologist [email or web address] [email or web address]/[email or web address] , 10:[address]/Dictated by: Jorje Alexandre MD @ 10/05/2023 10:09:00 AM (Electronically Signed)
--- NOTE | 2023-10-04 15:00 | CRLHL7_ITS ---
For Patients: As a result of the Century Cures Act, medical imaging exams and procedure reports are released immediately into your electronic medical record. You may view this report before your referring provider. If you have questions, please contact your health care provider. DXA BONE MINERAL DENSITY STUDY Current height (in): 65.0. Weight (lb): 215.0. Menopause age: 50. Ethnicity: White. Reason for exam: History of cancer, on aromatase inhibitor. 1. Have you had a previous hip or vertebral fracture? No. 2. Have you had any fractures during your adult life which did not result from significant trauma (e.g., auto accident)? No. 3. Did either of your parents have a hip fracture? No. 4. Do you smoke? No. 5. Have you ever taken Glucocorticoids? No. 6. Do you have rheumatoid arthritis? No. 7. Do you have secondary osteoporosis? No. 8. Do you drink 3 or more alcoholic drinks per day? No. 9. Are you being treated for osteoporosis? No. 10. Have you ever taken any of the following medications: Actonel, Evista, Fosamax, Miacalcin, Reclast, Boniva, Forteo, HRT (i.e. estrogen/hormone therapy), Protelos, Prolia, Vitamin D, Calcium, other ??? please specify. ANSWER: Yes, vitamin D, calcium. 11. Do you have any of the following medical conditions: Anorexia or bulimia, asthma or emphysema, end stage renal disease, hyperparathyroidism, any seizure disorders, cancer, inflammatory bowel diseases, hysterectomy, other ??? please specify. ANSWER: Yes, asthma or emphysema, cancer. 12. What was your maximum height (inches)? 67. 13. Do you perform weight bearing exercise regularly? No. 14. Do you regularly consume dairy products? Yes. 15. Do you drink caffeinated beverages? Yes. 16. At what age did your period start? 12. 17. Are you premenopausal? No. 18. How many full-term pregnancies have you had? 2. 19. Have you ever missed your period for more than 6 months in a row (not including or menopause)? No. TECHNIQUE: Bone mineral density study was performed using the [employer]. FINDINGS: The results of the study expressed as bone mineral density (BMD) are as follows: Lumbar spine L1 to L4: BMD: 1.095 g/cm2. T-score: 0.4. Z-score: 2.8 Neck Left: BMD: 0.681 g/cm2. T-score: -1.5. Z-score: 0.5 Right: BMD: 0.611 g/cm2. T-score: -2.1. Z-score: -0.1 Total Left: BMD: 0.889 g/cm2. T-score: -0.4. Z-score: 1.3 Right: BMD: 0.893 g/cm2. T-score: -0.4. Z-score: 1.3 IMPRESSION: Osteopenia. *Comparison exams done prior to 08/2019 were performed on different unit, [facility]. COMPARISON: Compared with scan of 04/21/2021, the bone mineral density has decreased by 1.2 percent at the spine and decreased by 7.1 percent at the hip. FRAX 10-year Fracture Risk Major Osteoporotic Fracture: 12 percent Hip Fracture: 3.0 percent Reported Risk Factors: [place] () Neck BMD = 0.611, BMI = 35.8 Jorje Manzano M.D. Diagnostic Radiologist [email or web address] Transcribed: 10:02 am DW/Dictated by: Jorje Manzano MD @ 10/05/2023 8:10:00 AM (Electronically Signed)
== END 2023-10-04 14:23 | disposition home or self-care (01) ==
LOC: MAMMO 14:22
PROVIDERS: PCP Family Medicine; Visit Provider Physician Assistant
DX: Z12.31 Encounter for screening mammogram for malignant neoplasm of breast (principal); Z79.811 Long term (current) use of aromatase inhibitors; M85.89 Other specified disorders of bone density and structure, multiple sites
CPT/HCPCS: 77063; 77067; 77080

== ENCOUNTER 2024-03-11 09:50 | Outpatient (RCR) | payer MEDICARE, BC, SELFPAY ==
--- NOTE | 2023-12-07 09:37 | ONC.NURNOTE ---
Received PA request from [facility] for Escitalopram Oxalate 5mg tablets. Pt recently saw Mary Lou and increased dosing of Escitalopram from 5mg/day which began 10/16/23 to 10 mg/day. Submitted request, citing inadequate management of anxiety on current dosing, as dose increase is in standard dosing range. [place]: [id number]
== END 2024-04-13 23:59 | disposition home or self-care (01) ==
LOC: CCIC 09:50
PROVIDERS: PCP Family Medicine; Visit Provider Physician Assistant
DX: C50.911 Malignant neoplasm of unspecified site of right female breast (principal); Z17.0 Estrogen receptor positive status [ER+]; M25.551 Pain in right hip; M19.011 Primary osteoarthritis, right shoulder; M85.80 Other specified disorders of bone density and structure, unspecified site; M19.90 Unspecified osteoarthritis, unspecified site; F41.9 Anxiety disorder, unspecified; Z79.811 Long term (current) use of aromatase inhibitors; G47.00 Insomnia, unspecified
CPT/HCPCS: 99214; 99215; G0463

== ENCOUNTER 2024-04-30 08:45 | Outpatient (CLI) | payer MEDICARE, BC, SELFPAY | END 2024-04-30 08:46 | disposition home or self-care (01) | LOC: MRI 08:46 | PROVIDERS: PCP Family Medicine; Visit Provider Surgery | DX: Z12.39 Encounter for other screening for malignant neoplasm of breast (principal); Z85.3 Personal history of malignant neoplasm of breast | CPT/HCPCS: 77049; C8908; C8937; A9575 ==

== ENCOUNTER 2024-05-07 12:05 | Outpatient (CLI) | payer MEDICARE, BC, SELFPAY | END 2024-05-07 12:06 | disposition home or self-care (01) | PROVIDERS: PCP Family Medicine; Visit Provider Family Medicine | DX: I10 Essential (primary) hypertension (principal); E78.5 Hyperlipidemia, unspecified; E55.9 Vitamin D deficiency, unspecified; I27.20 Pulmonary hypertension, unspecified; E66.9 Obesity, unspecified | CPT/HCPCS: 80048; 80061; 82306 ==

== ENCOUNTER 2024-09-09 12:50 | Outpatient (RCR) | payer MEDICARE, BC, SELFPAY | END 2024-12-02 23:59 | disposition home or self-care (01) | LOC: CCIC 12:50 | PROVIDERS: PCP Family Medicine; Visit Provider Physician Assistant | DX: C50.911 Malignant neoplasm of unspecified site of right female breast (principal); Z17.0 Estrogen receptor positive status [ER+]; Z79.811 Long term (current) use of aromatase inhibitors; M85.80 Other specified disorders of bone density and structure, unspecified site; M25.552 Pain in left hip; F41.9 Anxiety disorder, unspecified; G47.00 Insomnia, unspecified | CPT/HCPCS: 99214; 99215; G0463 ==

== ENCOUNTER 2024-10-08 11:03 | Outpatient (CLI) | payer MEDICARE, BC, SELFPAY ==
--- NOTE | 2024-10-08 11:30 | CRLHL7_ITS ---
For Patients: As a result of the Century Cures Act, medical imaging exams and procedure reports are released immediately into your electronic medical record. You may view this report before your referring provider. If you have questions, please contact your health care provider. INDICATION: BILATERAL SCREENING MAMMOGRAM, ASYMPTOMATIC 74 Y/O FEMALE COMPARISON: 10/04/2023, 02/22/2023, 09/20/2022 TECHNIQUE: Digital mammogram in CC and MLO projections including computer-aided detection (CAD) and tomosynthesis. BREAST COMPOSITION: There are scattered areas of fibroglandular density. FINDINGS: No suspicious findings. There are post-surgical changes of the right breast. ASSESSMENT: BI-RADS 2 Benign RECOMMENDATION: Annual screening mammogram. A lay language report of this examination will be provided to the patient. Dictated by: Jessica Morgan MD @ 10/09/2024 10:11:16 (Electronically Signed)
== END 2024-10-08 11:04 | disposition home or self-care (01) ==
LOC: MAMMO 11:04
PROVIDERS: PCP Family Medicine; Visit Provider Family Medicine
DX: Z12.31 Encounter for screening mammogram for malignant neoplasm of breast (principal)
CPT/HCPCS: 77063; 77067

== ENCOUNTER 2025-03-07 08:23 | Outpatient (CLI) | payer MEDICARE, BC, SELFPAY | END 2025-03-07 08:24 | disposition home or self-care (01) | PROVIDERS: PCP Family Medicine; Visit Provider Family Medicine | DX: R53.83 Other fatigue (principal); I10 Essential (primary) hypertension; E78.2 Mixed hyperlipidemia; Z13.21 Encounter for screening for nutritional disorder; Z13.0 Encounter for screening for diseases of the blood and blood-forming organs and certain disorders involving the immune mechanism; Z13.29 Encounter for screening for other suspected endocrine disorder | CPT/HCPCS: 80048; 80061; 82607; 84443 ==